=== PATIENT | male | born 1945 | race Caucasian/White ===

== ENCOUNTER 2021-11-18 18:54 | Inpatient (IN) ==
[2021-11-18] MEDS ORDERED: Melatonin 3 MG TABLET PO PRN (23:38)
[2021-11-18] MEDS ORDERED: Naloxone 0.4 MG/ML INJ IVP PRN (23:38)
[2021-11-18] MEDS ORDERED: D5% in Water 1,000 ML IVC PRN (23:39)
[2021-11-18] MEDS ORDERED: *HR* Dextrose 50 % in Water (Syg) 50 ML SYRINGE IVP PRN (23:39)
[2021-11-18] MEDS ORDERED: Dextrose Gel 15 GM/37.5 ML TUBE PO PRN ×2 (23:39)
[2021-11-19] MEDS: Insulin LISPRO 300 UNITS/3 ML VIAL SUBQ SCH ×5 (01:23→23:17)
[2021-11-19] MEDS: Cefepime HCl 1,000 MG in Water for inj. (sterile) 10 ML IVP SCH ×2 (01:23→08:30)
[2021-11-19] MEDS ORDERED: Ringers Solution, Lactated 1,000 ML IVC SCH (05:30)
[2021-11-19] MEDS ORDERED: Cefepime HCl 1,000 MG in Water for inj. (sterile) 10 ML IVP SCH (06:00)
[2021-11-19] MEDS ORDERED: *HR* Heparin 5,000 UNIT/ML VIAL IVP ONE (06:27)
[2021-11-19] MEDS ORDERED: *HR* Heparin 5,000 UNIT/ML VIAL IVP PRN ×2 (06:27)
[2021-11-19] MEDS ORDERED: Heparin 25,000UNIT/250ML 1/2NS 25,000 UNIT/250 ML IV.SOLN IVC SCH (06:30)
[2021-11-19] MEDS ORDERED: DilTIAZem 50 MG in 0.9 % Sodium Chloride 40 ML IVC SCH (06:30)
[2021-11-19 07:05] LABS: Basophils % 0.4 %; Eosinophils # 0.1 K/mcL (0.0-0.6); Eosinophils % 1.2 %; Hematocrit 31.4 % (37.5-50.1); Hemoglobin 10.8 g/dL (12.9-16.9); Immature Granulocytes % 1.8 % (0-4); Lymphocytes # 0.4 K/mcL (0.6-4.6); Lymphocytes % 7.4 %; Mean Corpuscular HGB Conc 34.4 g/dL (31.6-35.5); Mean Corpuscular Hemoglobin 34.2 pg (28.0-33.3); Mean Corpuscular Volume 99.4 fL (83.0-100.0); Mean Platelet Volume 10.8 fL (9.4-12.4); Monocytes # 0.4 K/mcL (0.0-1.3); Platelet Count 214 K/mcL (140-400); Red Blood Count 3.16 M/mcL (4.19-5.50); Red Cell Distribution Width 14.6 % (11.5-14.5); Segmented Neutrophils % 81.2 %; White Blood Count 4.9 K/mcL (4.3-11.1)
[2021-11-19 07:17] LABS: INR 1.1; Prothrombin Time 12.4 Seconds (9.4-12.1)
[2021-11-19 07:25] LABS: Albumin 2.9 g/dL (3.5-5.7); Albumin/Globulin Ratio 1.3 (1.1-2.2); Bilirubin,Direct 0.3 mg/dL (0.0-0.2); Bilirubin,Indirect 0.6 mg/dL (0.0-1.0); Bilirubin,Total 0.9 mg/dL (0.3-1.0); Globulin 2.2 g/dL (2.4-3.5); Total Protein 5.1 g/dL (6.4-8.9)
[2021-11-19 07:26] LABS: BUN/Creatinine Ratio 16 (6-26); Blood Urea Nitrogen 14 mg/dL (8-23); Calcium 7.9 mg/dL (8.6-10.3); Carbon Dioxide 23 mEq/L (23-29); Chloride 107 mEq/L (98-107); Glucose 96 mg/dL (70-105); Magnesium 1.4 mg/dL (1.6-2.6); Osmolality,Calculated 286 (280-300); Phosphorous 1.2 mg/dL (2.7-4.5); Potassium 3.3 mEq/L (3.5-5.1); Sodium 138 mEq/L (136-145); eGFR For African Americans > 60 (> 60); eGFR For Non-African Americans > 60 (> 60)
[2021-11-19] MEDS: DilTIAZem CD (24hr) 180 MG CAP.ER.24H PO SCH (08:29)
[2021-11-19] MEDS ORDERED: Potassium Phosphate 44 MEQ in 0.9 % Sodium Chloride 250 ML IVPB ONE (08:33)
[2021-11-19] MEDS ORDERED: Magnesium Oxide 400 MG TABLET PO ONE (08:34)
[2021-11-19 09:27] LABS: Estimated Average Glucose 240 mg/dl
[2021-11-19 10:49] LABS: C-Reactive Protein 39 mg/L (Less than 10)
[2021-11-19] MEDS ORDERED: *HR* Metoprolol 5 MG/5 ML VIAL IVP PRN (11:20)
[2021-11-19] MEDS: Cefepime HCl 2,000 MG in 0.9 % Sodium Chloride Mini Bag 100 ML IVPB SCH (17:16)
[2021-11-19] MEDS: Heparin 25,000UNIT/250ML 1/2NS 25,000 UNIT/250 ML IV.SOLN IVC SCH (17:18)
[2021-11-20] MEDS: Cefepime HCl 2,000 MG in 0.9 % Sodium Chloride Mini Bag 100 ML IVPB SCH ×4 (00:45→23:35)
[2021-11-20 04:43] LABS: Basophils % 0.2 %; Eosinophils # 0.1 K/mcL (0.0-0.6); Eosinophils % 1.6 %; Hematocrit 26.9 % (37.5-50.1); Hemoglobin 9.3 g/dL (12.9-16.9); Immature Granulocytes % 1.1 % (0-4); Lymphocytes # 0.3 K/mcL (0.6-4.6); Lymphocytes % 7.7 %; Mean Corpuscular HGB Conc 34.6 g/dL (31.6-35.5); Mean Corpuscular Hemoglobin 34.4 pg (28.0-33.3); Mean Corpuscular Volume 99.6 fL (83.0-100.0); Mean Platelet Volume 10.8 fL (9.4-12.4); Monocytes # 0.4 K/mcL (0.0-1.3); Monocytes % 8.1 %; Neutrophils # 3.6 K/mcL (1.6-8.9); Nucleated Red Blood Cells 0.9 /100 WBC (0); Platelet Count 159 K/mcL (140-400); Red Cell Distribution Width 14.9 % (11.5-14.5); Segmented Neutrophils % 81.3 %; White Blood Count 4.4 K/mcL (4.3-11.1)
[2021-11-20 05:09] LABS: BUN/Creatinine Ratio 15 (6-26); Blood Urea Nitrogen 13 mg/dL (8-23); Calcium 7.5 mg/dL (8.6-10.3); Carbon Dioxide 23 mEq/L (23-29); Chloride 106 mEq/L (98-107); Glucose 163 mg/dL (70-105); Osmolality,Calculated 288 (280-300); Potassium 3.2 mEq/L (3.5-5.1); Sodium 137 mEq/L (136-145); eGFR For African Americans > 60 (> 60); eGFR For Non-African Americans > 60 (> 60)
[2021-11-20] MEDS: Insulin LISPRO 300 UNITS/3 ML VIAL SUBQ SCH ×3 (07:05→21:50)
[2021-11-20] MEDS ORDERED: Metoprolol XL (24 HR) Succ 25 MG TAB.ER.24H PO SCH (09:00)
[2021-11-20] MEDS: DilTIAZem CD (24hr) 180 MG CAP.ER.24H PO SCH (09:35)
[2021-11-20] MEDS ORDERED: Isovue-370 500 ML BOTTLE IVP ONE (15:36)
[2021-11-20] MEDS ORDERED: SIMVASTATIN 10 MG PO SCH (18:00)
[2021-11-20] MEDS: carvediloL 6.25 MG TABLET PO SCH (18:28)
[2021-11-20] MEDS: Insulin DETEMIR 100 UNIT/ML X5UNITS SUBQ SCH (21:55)
[2021-11-20] MEDS: Latanoprost 2.5 ML BOTTLE BOTH EYES SCH (21:55)
[2021-11-20] MEDS: Dorzolamide/Timolol OPTH 10 ML BOTTLE BOTH EYES SCH (21:56)
[2021-11-20] MEDS: gemfibroziL 600 MG TABLET PO SCH (23:36)
[2021-11-21] MEDS ORDERED: Acetaminophen 325 MG TABLET PO PRN (00:11)
[2021-11-21] MEDS ORDERED: *HR* OxyCODONE Immed Rel 5 MG TABLET PO PRN (00:11)
[2021-11-21] MEDS: *HR* OxyCODONE Immed Rel 5 MG TABLET PO PRN (00:27)
[2021-11-21] MEDS: Heparin 25,000UNIT/250ML 1/2NS 25,000 UNIT/250 ML IV.SOLN IVC SCH (01:19)
[2021-11-21 05:29] LABS: Basophils % 0.2 %; Eosinophils # 0.1 K/mcL (0.0-0.6); Eosinophils % 1.5 %; Hematocrit 27.8 % (37.5-50.1); Hemoglobin 9.1 g/dL (12.9-16.9); Immature Granulocytes % 1.1 % (0-4); Lymphocytes # 0.3 K/mcL (0.6-4.6); Mean Corpuscular HGB Conc 32.7 g/dL (31.6-35.5); Mean Corpuscular Hemoglobin 33.5 pg (28.0-33.3); Mean Corpuscular Volume 102.2 fL (83.0-100.0); Mean Platelet Volume 10.9 fL (9.4-12.4); Monocytes # 0.4 K/mcL (0.0-1.3); Monocytes % 8.5 %; Neutrophils # 3.8 K/mcL (1.6-8.9); Nucleated Red Blood Cells 0.7 /100 WBC (0); Platelet Count 150 K/mcL (140-400); Red Blood Count 2.72 M/mcL (4.19-5.50); Red Cell Distribution Width 15.2 % (11.5-14.5); Segmented Neutrophils % 81.7 %; White Blood Count 4.6 K/mcL (4.3-11.1)
[2021-11-21 05:35] LABS: BUN/Creatinine Ratio 12 (6-26); Blood Urea Nitrogen 11 mg/dL (8-23); Calcium 7.3 mg/dL (8.6-10.3); Carbon Dioxide 25 mEq/L (23-29); Chloride 108 mEq/L (98-107); Glucose 220 mg/dL (70-105); Magnesium 1.5 mg/dL (1.6-2.6); Osmolality,Calculated 294 (280-300); Phosphorous 1.8 mg/dL (2.7-4.5); Potassium 3.2 mEq/L (3.5-5.1); Sodium 139 mEq/L (136-145); eGFR For African Americans > 60 (> 60); eGFR For Non-African Americans > 60 (> 60)
[2021-11-21] MEDS: Insulin LISPRO 300 UNITS/3 ML VIAL SUBQ SCH ×4 (08:28→21:57)
[2021-11-21] MEDS: Cefepime HCl 2,000 MG in 0.9 % Sodium Chloride Mini Bag 100 ML IVPB SCH ×2 (08:28→17:46)
[2021-11-21] MEDS: DilTIAZem CD (24hr) 180 MG CAP.ER.24H PO SCH (08:29)
[2021-11-21] MEDS: gemfibroziL 600 MG TABLET PO SCH ×2 (08:29→21:50)
[2021-11-21] MEDS: carvediloL 6.25 MG TABLET PO SCH ×2 (08:29→17:49)
[2021-11-21] MEDS: Dorzolamide/Timolol OPTH 10 ML BOTTLE BOTH EYES SCH ×2 (08:30→21:52)
[2021-11-21] MEDS ORDERED: Aspirin Enteric Coated 81 MG Tablet PO SCH (09:00)
[2021-11-21] MEDS ORDERED: *HR* Midazolam HCl 2 MG/2 ML VIAL ONE (12:34)
[2021-11-21] MEDS ORDERED: *HR* FentaNYL (PF) 100 MCG/2 ML VIAL ONE (12:34)
[2021-11-21] MEDS ORDERED: *HR* Heparin 10,000 UNIT/10 ML VIAL ONE (12:35)
[2021-11-21] MEDS ORDERED: Heparin 1,000 UNITS/500 mL 500 ML ONE (12:35)
[2021-11-21] MEDS ORDERED: 0.9 % Sodium Chloride 2,000 ML ONE (12:35)
[2021-11-21] MEDS ORDERED: Sennosides 8.6 MG TABLET PO SCH (21:00)
[2021-11-21] MEDS: Insulin DETEMIR 100 UNIT/ML X5UNITS SUBQ SCH (21:51)
[2021-11-21] MEDS: Latanoprost 2.5 ML BOTTLE BOTH EYES SCH (21:52)
[2021-11-22] MEDS: Cefepime HCl 2,000 MG in 0.9 % Sodium Chloride Mini Bag 100 ML IVPB SCH (00:07)
[2021-11-22] MEDS: *HR* OxyCODONE Immed Rel 5 MG TABLET PO PRN (01:27)
[2021-11-22 04:59] LABS: Basophils % 0.2 %; Eosinophils # 0.1 K/mcL (0.0-0.6); Eosinophils % 1.7 %; Hematocrit 27.6 % (37.5-50.1); Hemoglobin 8.9 g/dL (12.9-16.9); Lymphocytes # 0.4 K/mcL (0.6-4.6); Lymphocytes % 7.9 %; Mean Corpuscular HGB Conc 32.2 g/dL (31.6-35.5); Mean Corpuscular Hemoglobin 33.2 pg (28.0-33.3); Mean Platelet Volume 10.7 fL (9.4-12.4); Monocytes # 0.4 K/mcL (0.0-1.3); Monocytes % 8.3 %; Neutrophils # 4.2 K/mcL (1.6-8.9); Nucleated Red Blood Cells 0.4 /100 WBC (0); Platelet Count 144 K/mcL (140-400); Red Blood Count 2.68 M/mcL (4.19-5.50); Segmented Neutrophils % 80.9 %; White Blood Count 5.2 K/mcL (4.3-11.1)
[2021-11-22 05:37] LABS: BUN/Creatinine Ratio 13 (6-26); Blood Urea Nitrogen 11 mg/dL (8-23); Calcium 7.4 mg/dL (8.6-10.3); Carbon Dioxide 24 mEq/L (23-29); Chloride 110 mEq/L (98-107); Glucose 53 mg/dL (70-105); Magnesium 1.5 mg/dL (1.6-2.6); Osmolality,Calculated 283 (280-300); Potassium 3.3 mEq/L (3.5-5.1); Sodium 138 mEq/L (136-145); eGFR For African Americans > 60 (> 60); eGFR For Non-African Americans > 60 (> 60)
[2021-11-22] MEDS ORDERED: Potassium Chloride Elixir 20 MEQ/15 ML UDC PO ONE ×2 (07:38→15:53)
[2021-11-22] MEDS ORDERED: Apixaban 5 MG TABLET PO SCH ×2 (07:40→21:00)
[2021-11-22] MEDS ORDERED: Ondansetron 4 MG/2 ML VIAL IVP PRN ×2 (10:48→15:53)
[2021-11-22] MEDS ORDERED: Lidocaine 1% 20 ML MDV ONE (10:48)
[2021-11-22] MEDS ORDERED: Bupivacaine/EPI 1:200k 0.25% 50 ML VIAL ONE (10:48)
[2021-11-22] MEDS ORDERED: *HR* HYDROmorphone PF 0.5 MG/0.5 ML SYRINGE IVP PRN (10:48)
[2021-11-22] MEDS ORDERED: *HR* FentaNYL (PF) 100 MCG/2 ML VIAL IVP PRN (10:48)
[2021-11-22] MEDS: gemfibroziL 600 MG TABLET PO SCH ×2 (10:56→22:31)
[2021-11-22] MEDS: DilTIAZem CD (24hr) 180 MG CAP.ER.24H PO SCH (10:56)
[2021-11-22] MEDS: carvediloL 6.25 MG TABLET PO SCH ×3 (11:01→16:23)
[2021-11-22] MEDS: Dorzolamide/Timolol OPTH 10 ML BOTTLE BOTH EYES SCH ×2 (11:04→22:32)
[2021-11-22] MEDS: Insulin LISPRO 300 UNITS/3 ML VIAL SUBQ SCH ×2 (11:05→17:34)
[2021-11-22] MEDS ORDERED: *HR* FentaNYL (PF) 100 MCG/2 ML VIAL ONE (12:15)
[2021-11-22] MEDS ORDERED: Ondansetron 4 MG/2 ML VIAL ONE (12:16)
[2021-11-22] MEDS ORDERED: Acetaminophen IV 1,000 MG/100 ML BAG IVPB ONE ×2 (13:00→15:53)
[2021-11-22] MEDS ORDERED: Famotidine 20 MG/2 ML VIAL IVP ONE ×2 (13:00→15:53)
[2021-11-22] MEDS ORDERED: Vancomycin 1,000 MG VIAL ONE (13:16)
[2021-11-22] MEDS ORDERED: Acetaminophen 325 MG TABLET PO PRN (15:53)
[2021-11-22] MEDS ORDERED: Dextrose Gel 15 GM/37.5 ML TUBE PO PRN ×2 (15:53)
[2021-11-22] MEDS ORDERED: Naloxone 0.4 MG/ML INJ IVP PRN (15:53)
[2021-11-22] MEDS ORDERED: D5% in Water 1,000 ML IVC PRN (15:53)
[2021-11-22] MEDS ORDERED: *HR* Dextrose 50 % in Water (Syg) 50 ML SYRINGE IVP PRN (15:53)
[2021-11-22] MEDS ORDERED: Insulin LISPRO 300 UNITS/3 ML VIAL SUBQ SCH (21:00)
[2021-11-22] MEDS ORDERED: Insulin DETEMIR 100 UNIT/ML X5UNITS SUBQ SCH (21:00)
[2021-11-22] MEDS: Apixaban 5 MG TABLET PO SCH (22:31)
[2021-11-22] MEDS: Latanoprost 2.5 ML BOTTLE BOTH EYES SCH (22:33)
[2021-11-23] MEDS: Melatonin 3 MG TABLET PO PRN (00:42)
[2021-11-23 00:56] LABS: Basophils % 0.2 %; Eosinophils # 0.1 K/mcL (0.0-0.6); Eosinophils % 1.4 %; Hematocrit 27.7 % (37.5-50.1); Hemoglobin 8.8 g/dL (12.9-16.9); Lymphocytes # 0.3 K/mcL (0.6-4.6); Lymphocytes % 5.4 %; Mean Corpuscular HGB Conc 31.8 g/dL (31.6-35.5); Mean Corpuscular Hemoglobin 33.3 pg (28.0-33.3); Mean Corpuscular Volume 104.9 fL (83.0-100.0); Mean Platelet Volume 10.7 fL (9.4-12.4); Monocytes # 0.4 K/mcL (0.0-1.3); Monocytes % 8.2 %; Neutrophils # 4.2 K/mcL (1.6-8.9); Nucleated Red Blood Cells 0.4 /100 WBC (0); Platelet Count 159 K/mcL (140-400); Red Blood Count 2.64 M/mcL (4.19-5.50); Segmented Neutrophils % 83.8 %
[2021-11-23 01:16] LABS: BUN/Creatinine Ratio 12 (6-26); Blood Urea Nitrogen 10 mg/dL (8-23); Calcium 7.4 mg/dL (8.6-10.3); Carbon Dioxide 24 mEq/L (23-29); Chloride 108 mEq/L (98-107); Glucose 127 mg/dL (70-105); Magnesium 1.9 mg/dL (1.6-2.6); Osmolality,Calculated 285 (280-300); Phosphorous 2.3 mg/dL (2.7-4.5); Sodium 137 mEq/L (136-145); eGFR For African Americans > 60 (> 60); eGFR For Non-African Americans > 60 (> 60)
[2021-11-23] MEDS ORDERED: Ketorolac 30 MG/ML VIAL IVP ONE (04:38)
[2021-11-23] MEDS: DilTIAZem CD (24hr) 180 MG CAP.ER.24H PO SCH (07:56)
[2021-11-23] MEDS: gemfibroziL 600 MG TABLET PO SCH ×2 (07:56→19:55)
[2021-11-23] MEDS: carvediloL 6.25 MG TABLET PO SCH ×2 (07:56→18:04)
[2021-11-23] MEDS: Apixaban 5 MG TABLET PO SCH ×2 (07:57→19:56)
[2021-11-23] MEDS: Insulin LISPRO 300 UNITS/3 ML VIAL SUBQ SCH ×3 (07:58→18:04)
[2021-11-23] MEDS: Dorzolamide/Timolol OPTH 10 ML BOTTLE BOTH EYES SCH ×2 (07:58→19:59)
[2021-11-23] MEDS: *HR* OxyCODONE Immed Rel 5 MG TABLET PO PRN (19:56)
[2021-11-23] MEDS: Latanoprost 2.5 ML BOTTLE BOTH EYES SCH (20:01)
[2021-11-24] MEDS: *HR* OxyCODONE Immed Rel 5 MG TABLET PO PRN ×3 (03:47→21:35)
[2021-11-24] MEDS: Nystatin POWDER 30 GM BOTTLE TP SCH ×4 (03:47→20:26)
[2021-11-24] MEDS: Insulin LISPRO 300 UNITS/3 ML VIAL SUBQ SCH ×4 (07:39→17:20)
[2021-11-24 07:42] LABS: BUN/Creatinine Ratio 11 (6-26); Blood Urea Nitrogen 9 mg/dL (8-23); Calcium 7.4 mg/dL (8.6-10.3); Carbon Dioxide 25 mEq/L (23-29); Chloride 107 mEq/L (98-107); Glucose 242 mg/dL (70-105); Magnesium 1.7 mg/dL (1.6-2.6); Osmolality,Calculated 289 (280-300); Phosphorous 2.5 mg/dL (2.7-4.5); Potassium 3.9 mEq/L (3.5-5.1); Sodium 136 mEq/L (136-145); eGFR For African Americans > 60 (> 60); eGFR For Non-African Americans > 60 (> 60)
[2021-11-24] MEDS: carvediloL 6.25 MG TABLET PO SCH ×2 (07:53→17:19)
[2021-11-24] MEDS: Apixaban 5 MG TABLET PO SCH ×2 (07:53→20:25)
[2021-11-24] MEDS: DilTIAZem CD (24hr) 180 MG CAP.ER.24H PO SCH (07:54)
[2021-11-24] MEDS: gemfibroziL 600 MG TABLET PO SCH ×2 (07:54→20:25)
[2021-11-24] MEDS: Dorzolamide/Timolol OPTH 10 ML BOTTLE BOTH EYES SCH ×2 (07:55→20:40)
[2021-11-24] MEDS: Melatonin 3 MG TABLET PO PRN (20:25)
[2021-11-24] MEDS: Latanoprost 2.5 ML BOTTLE BOTH EYES SCH (20:40)
[2021-11-25 03:27] LABS: Basophils % 0.3 %; Eosinophils # 0.1 K/mcL (0.0-0.6); Eosinophils % 1.8 %; Hematocrit 26.8 % (37.5-50.1); Hemoglobin 8.6 g/dL (12.9-16.9); Immature Granulocytes % 0.6 % (0-4); Lymphocytes # 0.4 K/mcL (0.6-4.6); Lymphocytes % 11.3 %; Mean Corpuscular HGB Conc 32.1 g/dL (31.6-35.5); Mean Corpuscular Hemoglobin 33.9 pg (28.0-33.3); Mean Corpuscular Volume 105.5 fL (83.0-100.0); Mean Platelet Volume 10.8 fL (9.4-12.4); Monocytes # 0.5 K/mcL (0.0-1.3); Monocytes % 14.9 %; Neutrophils # 2.4 K/mcL (1.6-8.9); Nucleated Red Blood Cells 0.6 /100 WBC (0); Platelet Count 192 K/mcL (140-400); Red Blood Count 2.54 M/mcL (4.19-5.50); Red Cell Distribution Width 16.1 % (11.5-14.5); Segmented Neutrophils % 71.1 %; White Blood Count 3.4 K/mcL (4.3-11.1)
[2021-11-25 03:50] LABS: BUN/Creatinine Ratio 10 (6-26); Blood Urea Nitrogen 10 mg/dL (8-23); Calcium 7.7 mg/dL (8.6-10.3); Carbon Dioxide 28 mEq/L (23-29); Chloride 104 mEq/L (98-107); Glucose 219 mg/dL (70-105); Osmolality,Calculated 290 (280-300); Potassium 3.8 mEq/L (3.5-5.1); Sodium 137 mEq/L (136-145); eGFR For African Americans > 60 (> 60); eGFR For Non-African Americans > 60 (> 60)
[2021-11-25 03:53] LABS: Anisocytosis 1+ (Not Present); Platelet Estimate Normal (Normal); Polychromasia 1+ (Not Present); Reactive Lymphocytes Present (Not Present)
[2021-11-25] MEDS: *HR* OxyCODONE Immed Rel 5 MG TABLET PO PRN ×3 (08:19→23:40)
[2021-11-25] MEDS: gemfibroziL 600 MG TABLET PO SCH ×2 (08:20→20:43)
[2021-11-25] MEDS: Apixaban 5 MG TABLET PO SCH ×2 (08:21→20:44)
[2021-11-25] MEDS: carvediloL 6.25 MG TABLET PO SCH ×2 (08:21→17:53)
[2021-11-25] MEDS: DilTIAZem CD (24hr) 180 MG CAP.ER.24H PO SCH (08:21)
[2021-11-25] MEDS: Nystatin POWDER 30 GM BOTTLE TP SCH ×3 (08:22→20:45)
[2021-11-25] MEDS: Dorzolamide/Timolol OPTH 10 ML BOTTLE BOTH EYES SCH ×2 (08:24→20:44)
[2021-11-25] MEDS: Insulin LISPRO 300 UNITS/3 ML VIAL SUBQ SCH ×3 (08:31→16:39)
[2021-11-25] MEDS: Latanoprost 2.5 ML BOTTLE BOTH EYES SCH (20:44)
[2021-11-26] MEDS: *HR* OxyCODONE Immed Rel 5 MG TABLET PO PRN ×3 (03:40→17:20)
[2021-11-26 08:23] LABS: BUN/Creatinine Ratio 11 (6-26); Blood Urea Nitrogen 9 mg/dL (8-23); Calcium 7.8 mg/dL (8.6-10.3); Carbon Dioxide 28 mEq/L (23-29); Chloride 102 mEq/L (98-107); Glucose 274 mg/dL (70-105); Osmolality,Calculated 288 (280-300); Potassium 3.7 mEq/L (3.5-5.1); Sodium 135 mEq/L (136-145); eGFR For African Americans > 60 (> 60); eGFR For Non-African Americans > 60 (> 60)
[2021-11-26 08:25] LABS: Magnesium 1.6 mg/dL (1.6-2.6); Phosphorous 1.8 mg/dL (2.7-4.5)
[2021-11-26] MEDS: Insulin LISPRO 300 UNITS/3 ML VIAL SUBQ SCH ×3 (08:28→17:21)
[2021-11-26] MEDS: DilTIAZem CD (24hr) 180 MG CAP.ER.24H PO SCH (08:29)
[2021-11-26] MEDS: gemfibroziL 600 MG TABLET PO SCH ×2 (08:29→20:44)
[2021-11-26] MEDS: carvediloL 6.25 MG TABLET PO SCH ×2 (08:29→17:20)
[2021-11-26] MEDS: Apixaban 5 MG TABLET PO SCH ×2 (08:29→20:44)
[2021-11-26] MEDS: Nystatin POWDER 30 GM BOTTLE TP SCH ×3 (08:30→20:44)
[2021-11-26] MEDS: Dorzolamide/Timolol OPTH 10 ML BOTTLE BOTH EYES SCH ×2 (08:30→20:47)
[2021-11-26] MEDS: Magnesium Oxide 400 MG TABLET PO SCH (11:51)
[2021-11-26] MEDS: Latanoprost 2.5 ML BOTTLE BOTH EYES SCH (20:47)
[2021-11-27] MEDS: *HR* OxyCODONE Immed Rel 5 MG TABLET PO PRN ×4 (02:52→23:28)
[2021-11-27 05:57] LABS: Basophils % 0.2 %; Eosinophils # 0.1 K/mcL (0.0-0.6); Eosinophils % 1.5 %; Hematocrit 25.5 % (37.5-50.1); Hemoglobin 8.2 g/dL (12.9-16.9); Immature Granulocytes % 1.2 % (0-4); Lymphocytes # 0.2 K/mcL (0.6-4.6); Lymphocytes % 4.9 %; Mean Corpuscular HGB Conc 32.2 g/dL (31.6-35.5); Mean Corpuscular Hemoglobin 33.2 pg (28.0-33.3); Mean Corpuscular Volume 103.2 fL (83.0-100.0); Mean Platelet Volume 10.6 fL (9.4-12.4); Monocytes # 0.5 K/mcL (0.0-1.3); Nucleated Red Blood Cells 0.5 /100 WBC (0); Platelet Count 230 K/mcL (140-400); Red Blood Count 2.47 M/mcL (4.19-5.50); Red Cell Distribution Width 15.7 % (11.5-14.5); Segmented Neutrophils % 79.2 %; White Blood Count 4.1 K/mcL (4.3-11.1)
[2021-11-27 06:05] LABS: Neutrophils # 3.3 K/mcL (1.6-8.9)
[2021-11-27 06:15] LABS: BUN/Creatinine Ratio 12 (6-26); Blood Urea Nitrogen 10 mg/dL (8-23); Calcium 7.5 mg/dL (8.6-10.3); Carbon Dioxide 29 mEq/L (23-29); Chloride 102 mEq/L (98-107); Glucose 277 mg/dL (70-105); Osmolality,Calculated 291 (280-300); Potassium 3.5 mEq/L (3.5-5.1); Sodium 136 mEq/L (136-145); eGFR For African Americans > 60 (> 60); eGFR For Non-African Americans > 60 (> 60)
[2021-11-27] MEDS: Nystatin POWDER 30 GM BOTTLE TP SCH ×3 (07:45→20:35)
[2021-11-27] MEDS: Apixaban 5 MG TABLET PO SCH ×2 (07:46→20:34)
[2021-11-27] MEDS: Insulin LISPRO 300 UNITS/3 ML VIAL SUBQ SCH ×3 (07:46→16:57)
[2021-11-27] MEDS: gemfibroziL 600 MG TABLET PO SCH ×2 (07:46→20:34)
[2021-11-27] MEDS: DilTIAZem CD (24hr) 180 MG CAP.ER.24H PO SCH (07:47)
[2021-11-27] MEDS: Dorzolamide/Timolol OPTH 10 ML BOTTLE BOTH EYES SCH ×2 (07:47→20:35)
[2021-11-27] MEDS: carvediloL 6.25 MG TABLET PO SCH ×2 (07:47→16:57)
[2021-11-27] MEDS: Magnesium Oxide 400 MG TABLET PO SCH (07:47)
[2021-11-27] MEDS: Latanoprost 2.5 ML BOTTLE BOTH EYES SCH (20:36)
[2021-11-28] MEDS: *HR* OxyCODONE Immed Rel 5 MG TABLET PO PRN ×2 (04:41→08:59)
[2021-11-28 07:55] LABS: Hematocrit 27.6 % (37.5-50.1); Hemoglobin 9.2 g/dL (12.9-16.9); Mean Corpuscular HGB Conc 33.3 g/dL (31.6-35.5); Mean Corpuscular Hemoglobin 34.5 pg (28.0-33.3); Mean Corpuscular Volume 103.4 fL (83.0-100.0); Mean Platelet Volume 10.5 fL (9.4-12.4); Monocytes # 0.5 K/mcL (0.0-1.3); Platelet Count 273 K/mcL (140-400); Red Blood Count 2.67 M/mcL (4.19-5.50); Red Cell Distribution Width 15.7 % (11.5-14.5); White Blood Count 4.5 K/mcL (4.3-11.1)
[2021-11-28 08:11] LABS: BUN/Creatinine Ratio 11 (6-26); Blood Urea Nitrogen 9 mg/dL (8-23); Carbon Dioxide 27 mEq/L (23-29); Chloride 100 mEq/L (98-107); Glucose 297 mg/dL (70-105); Magnesium 1.6 mg/dL (1.6-2.6); Osmolality,Calculated 288 (280-300); Potassium 3.7 mEq/L (3.5-5.1); Sodium 134 mEq/L (136-145); eGFR For African Americans > 60 (> 60); eGFR For Non-African Americans > 60 (> 60)
[2021-11-28] MEDS: carvediloL 6.25 MG TABLET PO SCH (08:47)
[2021-11-28] MEDS: DilTIAZem CD (24hr) 180 MG CAP.ER.24H PO SCH (08:47)
[2021-11-28] MEDS: gemfibroziL 600 MG TABLET PO SCH (08:47)
[2021-11-28] MEDS: Apixaban 5 MG TABLET PO SCH (08:47)
[2021-11-28] MEDS: Nystatin POWDER 30 GM BOTTLE TP SCH ×2 (08:47→14:34)
[2021-11-28] MEDS: Magnesium Oxide 400 MG TABLET PO SCH (08:47)
[2021-11-28] MEDS: Insulin LISPRO 300 UNITS/3 ML VIAL SUBQ SCH ×2 (08:48→12:08)
[2021-11-28 08:49] LABS: Anisocytosis 2+ (Not Present); Lymphocytes # 0.1 K/mcL (0.6-4.6); Platelet Estimate Normal (Normal)
[2021-11-28] MEDS: Dorzolamide/Timolol OPTH 10 ML BOTTLE BOTH EYES SCH (08:51)
[2021-11-28 12:49] LABS: Adenovirus Not Detected (Not Detect); Bordetella Pertussis Not Detected (Not Detect); Chlamydophila pneumoniae Not Detected (Not Detect); Coronavirus 229E Not Detected (Not Detect); Coronavirus HKU1 Not Detected (Not Detect); Coronavirus NL63 Not Detected (Not Detect); Coronavirus OC43 Not Detected (Not Detect); Human Metapneumovirus Not Detected (Not Detect); Human Rhinovirus/Enterovirus Not Detected (Not Detect); Influenza A Subtype 2009 H1 Not Detected (Not Detect); Influenza B Not Detected (Not Detect); Mycoplasma pneumoniae Not Detected (Not Detect); Parainfluenza Virus 1 Not Detected (Not Detect); Parainfluenza Virus 2 Not Detected (Not Detect); Parainfluenza Virus 3 Not Detected (Not Detect); Parainfluenza Virus 4 Not Detected (Not Detect); Respiratory Syncytial Virus Not Detected (Not Detect); SARS-CoV-2 Not Detected (Not Detect)
[2021-11-28 15:20] VITALS: BP 108/63; PULSE 81; TEMP 98.6; O2SAT 88
[2021-11-28] MEDS ORDERED: Sennosides/Docusate Sodium TABLET PO SCH (21:00)
[2021-11-28] MEDS ORDERED: Insulin DETEMIR 100 UNIT/ML X5UNITS SUBQ SCH (21:00)
[2021-11-29] MEDS ORDERED: polyethylene glycoL 3350 17 GM POWD.PACK PO SCH (09:00)
== END 2021-11-28 16:18 | DRG 854 ==
LOC: 4WAOSI → SUATTDRO 11-19 13:26
PROVIDERS: ADMIT Student in an Organized Health Care Education/Training Program; ATTEND Pharmacist

== ENCOUNTER 2021-11-30 10:28 | Inpatient (IN) ==
[2021-11-30] MEDS ORDERED: *HR* Dextrose 50 % in Water (Syg) 50 ML SYRINGE ONE (13:55)
[2021-11-30] MEDS ORDERED: D5% in Water 1,000 ML IVC PRN (13:56)
[2021-11-30] MEDS ORDERED: Dextrose Gel 15 GM/37.5 ML TUBE PO PRN ×2 (13:56)
[2021-11-30] MEDS ORDERED: Isovue-370 500 ML BOTTLE IVP ONE (13:57)
[2021-11-30] MEDS: *HR* Dextrose 50 % in Water (Syg) 50 ML SYRINGE IVP PRN ×2 (13:59→18:00)
[2021-11-30] MEDS ORDERED: Furosemide 40 MG/4 ML VIAL IVP ONE (14:03)
[2021-11-30] MEDS ORDERED: Ondansetron 4 MG/2 ML VIAL IVP PRN (14:06)
[2021-11-30] MEDS ORDERED: Naloxone 0.4 MG/ML INJ IVP PRN (14:06)
[2021-11-30] MEDS: *HR* Metoprolol 5 MG/5 ML VIAL IVP PRN (14:16)
[2021-11-30] MEDS: DilTIAZem 50 MG in 0.9 % Sodium Chloride 40 ML IVC SCH ×2 (14:22→22:08)
[2021-11-30 14:30] LABS: VBG Base Excess 2 mEq/L; VBG Chloride 101 mEq/L (98-107); VBG Glucose 195 mg/dl (65-95); VBG HCO3 29 mEq/L (21-27); VBG Ionized Calcium 1.06 mmol/L (1.15-1.35); VBG Oxygen Saturation 49 %; VBG PCO2 51 mmHg (41-51); VBG PH 7.36 pH Units (7.32-7.42); VBG PO2 28 mmHg (25-50); VBG Total CO2 30 mEq/L
[2021-11-30 14:35] LABS: INR 1.9; Prothrombin Time 20.9 Seconds (9.4-12.1)
[2021-11-30] MEDS ORDERED: Perflutren Lipid Microsphere 1.3 ML in 0.9 % Sodium Chloride 8.7 ML IVP PRN (14:38)
[2021-11-30] MEDS: carvediloL 6.25 MG TABLET PO SCH (17:04)
[2021-11-30] MEDS: *HR* OxyCODONE Immed Rel 5 MG TABLET PO PRN (18:53)
[2021-11-30] MEDS: Piperacillin/Tazobactam 3.375 GM in 0.9 % Sodium Chloride Mini Bag 100 ML IVPB SCH (19:06)
[2021-11-30] MEDS: D5% in 0.45% NACL 1,000 ML IVC SCH (19:06)
[2021-11-30] MEDS ORDERED: *HR* HYDROcodone/Acet 5/325 mg TABLET PO ONE (23:13)
[2021-11-30] MEDS: Apixaban 5 MG TABLET PO SCH (23:21)
[2021-12-01] MEDS: Piperacillin/Tazobactam 3.375 GM in 0.9 % Sodium Chloride Mini Bag 100 ML IVPB SCH ×3 (01:03→16:06)
[2021-12-01] MEDS: *HR* OxyCODONE Immed Rel 5 MG TABLET PO PRN ×3 (04:34→16:07)
[2021-12-01] MEDS ORDERED: Morphine Sulfate 2 MG/ML SYRINGE IVP ONE (06:40)
[2021-12-01] MEDS: Apixaban 5 MG TABLET PO SCH ×2 (08:41→19:43)
[2021-12-01] MEDS: gemfibroziL 600 MG TABLET PO SCH ×2 (08:41→19:43)
[2021-12-01] MEDS: Dorzolamide/Timolol OPTH 10 ML BOTTLE BOTH EYES SCH ×2 (08:42→19:44)
[2021-12-01] MEDS: D5% in 0.45% NACL 1,000 ML IVC SCH (08:42)
[2021-12-01] MEDS: carvediloL 6.25 MG TABLET PO SCH ×2 (08:42→16:05)
[2021-12-01] MEDS ORDERED: DilTIAZem CD (24hr) 180 MG CAP.ER.24H PO SCH (09:00)
[2021-12-01 11:44] LABS: Hematocrit 24.2 % (37.5-50.1); Mean Corpuscular Hemoglobin 32.9 pg (28.0-33.3); Mean Corpuscular Volume 106.1 fL (83.0-100.0); Mean Platelet Volume 10.8 fL (9.4-12.4); Nucleated Red Blood Cells 0.3 /100 WBC (0); Platelet Count 226 K/mcL (140-400); Red Blood Count 2.28 M/mcL (4.19-5.50)
[2021-12-01 11:48] LABS: Hemoglobin 7.5 g/dL (12.9-16.9); White Blood Count 6.9 K/mcL (4.3-11.1)
[2021-12-01 12:02] LABS: BUN/Creatinine Ratio 15 (6-26); Blood Urea Nitrogen 15 mg/dL (8-23); Calcium 7.3 mg/dL (8.6-10.3); Carbon Dioxide 29 mEq/L (23-29); Chloride 102 mEq/L (98-107); Glucose 179 mg/dL (70-105); Magnesium 1.6 mg/dL (1.6-2.6); Osmolality,Calculated 291 (280-300); Potassium 3.8 mEq/L (3.5-5.1); Sodium 138 mEq/L (136-145); eGFR For African Americans > 60 (> 60); eGFR For Non-African Americans > 60 (> 60)
[2021-12-01 12:07] LABS: Lymphocytes # 0.4 K/mcL (0.6-4.6); Monocytes # 0.4 K/mcL (0.0-1.3); Neutrophils # 6.1 K/mcL (1.6-8.9); Platelet Estimate Normal (Normal); Poikilocytosis 1+ (Not Present); Polychromasia 1+ (Not Present)
[2021-12-01] MEDS: DilTIAZem 50 MG in 0.9 % Sodium Chloride 40 ML IVC SCH (12:22)
[2021-12-01] MEDS: Gabapentin 300 MG CAPSULE PO SCH ×3 (12:49→19:43)
[2021-12-01 17:18] LABS: Hematocrit 23.5 % (37.5-50.1); Hemoglobin 7.4 g/dL (12.9-16.9)
[2021-12-01] MEDS: Latanoprost 2.5 ML BOTTLE BOTH EYES SCH (19:44)
[2021-12-02] MEDS: Piperacillin/Tazobactam 3.375 GM in 0.9 % Sodium Chloride Mini Bag 100 ML IVPB SCH ×3 (04:39→18:19)
[2021-12-02 05:04] LABS: Basophils % 0.3 %; Eosinophils # 0.1 K/mcL (0.0-0.6); Eosinophils % 0.8 %; Hematocrit 24.6 % (37.5-50.1); Hemoglobin 7.7 g/dL (12.9-16.9); Immature Granulocytes % 1.2 % (0-4); Lymphocytes # 0.3 K/mcL (0.6-4.6); Lymphocytes % 3.8 %; Mean Corpuscular HGB Conc 31.3 g/dL (31.6-35.5); Mean Corpuscular Hemoglobin 33.2 pg (28.0-33.3); Mean Platelet Volume 10.7 fL (9.4-12.4); Monocytes # 0.5 K/mcL (0.0-1.3); Monocytes % 6.2 %; Neutrophils # 6.7 K/mcL (1.6-8.9); Platelet Count 281 K/mcL (140-400); Red Blood Count 2.32 M/mcL (4.19-5.50); Red Cell Distribution Width 15.9 % (11.5-14.5); Segmented Neutrophils % 87.7 %; White Blood Count 7.6 K/mcL (4.3-11.1)
[2021-12-02 05:26] LABS: BUN/Creatinine Ratio 16 (6-26); Blood Urea Nitrogen 14 mg/dL (8-23); Calcium 7.4 mg/dL (8.6-10.3); Carbon Dioxide 30 mEq/L (23-29); Chloride 103 mEq/L (98-107); Glucose 162 mg/dL (70-105); Iron 34 mcg/dL (65-175); Osmolality,Calculated 288 (280-300); Potassium 3.5 mEq/L (3.5-5.1); Sodium 137 mEq/L (136-145); eGFR For African Americans > 60 (> 60); eGFR For Non-African Americans > 60 (> 60)
[2021-12-02 05:36] LABS: % Iron Saturation 25 % (20-55); Transferrin 97 mg/dL (203-362)
[2021-12-02 05:43] LABS: Ferritin 401 ng/mL (20-250)
[2021-12-02 05:48] LABS: Folate 6.9 ng/mL (3.0-16.0)
[2021-12-02] MEDS: *HR* OxyCODONE Immed Rel 5 MG TABLET PO PRN ×2 (06:12→20:22)
[2021-12-02] MEDS ORDERED: Iron Sucrose Complex 400 MG in 0.9 % Sodium Chloride 250 ML IVPB ONE (07:33)
[2021-12-02] MEDS: Apixaban 5 MG TABLET PO SCH ×2 (07:36→20:22)
[2021-12-02] MEDS: gemfibroziL 600 MG TABLET PO SCH ×2 (07:37→20:22)
[2021-12-02] MEDS: carvediloL 6.25 MG TABLET PO SCH ×2 (07:37→16:04)
[2021-12-02] MEDS: Dorzolamide/Timolol OPTH 10 ML BOTTLE BOTH EYES SCH ×2 (07:37→20:23)
[2021-12-02] MEDS: Gabapentin 300 MG CAPSULE PO SCH ×3 (07:37→20:22)
[2021-12-02 16:06] LABS: Procalcitonin 4.84 ng/mL (0.00-0.15)
[2021-12-02] MEDS: Latanoprost 2.5 ML BOTTLE BOTH EYES SCH (20:24)
[2021-12-03] MEDS: Piperacillin/Tazobactam 3.375 GM in 0.9 % Sodium Chloride Mini Bag 100 ML IVPB SCH ×3 (01:52→17:47)
[2021-12-03] MEDS ORDERED: *HR* Dextrose 50 % in Water (Syg) 50 ML SYRINGE IVP PRN (02:10)
[2021-12-03] MEDS ORDERED: D5% in Water 1,000 ML IVC PRN (02:10)
[2021-12-03] MEDS ORDERED: Dextrose Gel 15 GM/37.5 ML TUBE PO PRN ×2 (02:10)
[2021-12-03 03:51] LABS: Basophils % 0.3 %; Eosinophils % 0.5 %; Hematocrit 24.4 % (37.5-50.1); Hemoglobin 7.7 g/dL (12.9-16.9); Immature Granulocytes % 1.8 % (0-4); Lymphocytes # 0.3 K/mcL (0.6-4.6); Lymphocytes % 4.2 %; Mean Corpuscular HGB Conc 31.6 g/dL (31.6-35.5); Mean Corpuscular Hemoglobin 33.5 pg (28.0-33.3); Mean Corpuscular Volume 106.1 fL (83.0-100.0); Mean Platelet Volume 10.7 fL (9.4-12.4); Monocytes # 0.4 K/mcL (0.0-1.3); Monocytes % 6.5 %; Neutrophils # 5.8 K/mcL (1.6-8.9); Platelet Count 305 K/mcL (140-400); Segmented Neutrophils % 86.7 %; White Blood Count 6.6 K/mcL (4.3-11.1)
[2021-12-03] MEDS: *HR* OxyCODONE Immed Rel 5 MG TABLET PO PRN ×2 (04:19→14:05)
[2021-12-03 04:20] LABS: BUN/Creatinine Ratio 11 (6-26); Blood Urea Nitrogen 11 mg/dL (8-23); Calcium 7.4 mg/dL (8.6-10.3); Carbon Dioxide 29 mEq/L (23-29); Chloride 103 mEq/L (98-107); Glucose 208 mg/dL (70-105); Osmolality,Calculated 291 (280-300); Potassium 3.7 mEq/L (3.5-5.1); Sodium 138 mEq/L (136-145); eGFR For African Americans > 60 (> 60); eGFR For Non-African Americans > 60 (> 60)
[2021-12-03] MEDS: Insulin LISPRO 300 UNITS/3 ML VIAL SUBQ SCH ×3 (11:15→17:51)
[2021-12-03] MEDS: gemfibroziL 600 MG TABLET PO SCH (11:17)
[2021-12-03] MEDS: carvediloL 6.25 MG TABLET PO SCH ×2 (11:17→17:39)
[2021-12-03] MEDS: Gabapentin 300 MG CAPSULE PO SCH ×3 (11:17→20:47)
[2021-12-03] MEDS: Apixaban 5 MG TABLET PO SCH ×2 (11:17→20:47)
[2021-12-03] MEDS: Dorzolamide/Timolol OPTH 10 ML BOTTLE BOTH EYES SCH ×2 (11:19→20:48)
[2021-12-03] MEDS ORDERED: Morphine Sulfate 2 MG/ML SYRINGE IVP ONE (17:40)
[2021-12-03] MEDS: Latanoprost 2.5 ML BOTTLE BOTH EYES SCH (20:48)
[2021-12-04] MEDS: *HR* OxyCODONE Immed Rel 5 MG TABLET PO PRN ×3 (02:12→19:58)
[2021-12-04] MEDS: Piperacillin/Tazobactam 3.375 GM in 0.9 % Sodium Chloride Mini Bag 100 ML IVPB SCH ×3 (02:12→17:04)
[2021-12-04] MEDS ORDERED: Morphine Sulfate 2 MG/ML SYRINGE IVP ONE (05:21)
[2021-12-04 06:34] LABS: Basophils % 0.5 %; Eosinophils % 0.6 %; Hematocrit 26.4 % (37.5-50.1); Hemoglobin 8.2 g/dL (12.9-16.9); Lymphocytes # 0.3 K/mcL (0.6-4.6); Lymphocytes % 4.3 %; Mean Corpuscular HGB Conc 31.1 g/dL (31.6-35.5); Mean Corpuscular Hemoglobin 33.3 pg (28.0-33.3); Mean Corpuscular Volume 107.3 fL (83.0-100.0); Mean Platelet Volume 10.2 fL (9.4-12.4); Monocytes # 0.6 K/mcL (0.0-1.3); Monocytes % 9.1 %; Neutrophils # 5.5 K/mcL (1.6-8.9); Platelet Count 338 K/mcL (140-400); Red Blood Count 2.46 M/mcL (4.19-5.50); Red Cell Distribution Width 15.8 % (11.5-14.5); Segmented Neutrophils % 83.5 %; White Blood Count 6.6 K/mcL (4.3-11.1)
[2021-12-04] MEDS: Apixaban 5 MG TABLET PO SCH ×2 (08:54→19:57)
[2021-12-04] MEDS: Insulin LISPRO 300 UNITS/3 ML VIAL SUBQ SCH ×3 (08:54→17:07)
[2021-12-04] MEDS: carvediloL 6.25 MG TABLET PO SCH (08:55)
[2021-12-04] MEDS: Furosemide 20 MG TABLET PO SCH (08:55)
[2021-12-04] MEDS: *HR* Metoprolol 5 MG/5 ML VIAL IVP PRN (08:55)
[2021-12-04] MEDS: Gabapentin 300 MG CAPSULE PO SCH ×3 (08:55→19:57)
[2021-12-04] MEDS: Dorzolamide/Timolol OPTH 10 ML BOTTLE BOTH EYES SCH ×2 (08:56→21:21)
[2021-12-04 09:17] LABS: Alanine Aminotransferase 10 Units/L (7-52); Albumin 2.2 g/dL (3.5-5.7); Albumin/Globulin Ratio 0.8 (1.1-2.2); Alkaline Phosphatase 56 Units/L (34-104); Aspartate Amino Transferase 20 Units/L (13-39); BUN/Creatinine Ratio 12 (6-26); Bilirubin,Total 0.4 mg/dL (0.3-1.0); Blood Urea Nitrogen 10 mg/dL (8-23); Calcium 7.6 mg/dL (8.6-10.3); Carbon Dioxide 30 mEq/L (23-29); Chloride 104 mEq/L (98-107); Globulin 2.7 g/dL (2.4-3.5); Glucose 147 mg/dL (70-105); Osmolality,Calculated 290 (280-300); Potassium 3.6 mEq/L (3.5-5.1); Sodium 139 mEq/L (136-145); Total Protein 4.9 g/dL (6.4-8.9); eGFR For African Americans > 60 (> 60); eGFR For Non-African Americans > 60 (> 60)
[2021-12-04] MEDS ORDERED: carvediloL 6.25 MG TABLET PO ONE (13:10)
[2021-12-04] MEDS ORDERED: *HR* Digoxin 0.25 MG TABLET PO ONE (14:25)
[2021-12-04] MEDS: carvediloL 25 MG TABLET PO SCH (17:05)
[2021-12-04] MEDS ORDERED: *HR* Digoxin 0.5 MG/2 ML AMPUL IVP SCH (18:00)
[2021-12-04] MEDS: Insulin DETEMIR 100 UNIT/ML X5UNITS SUBQ SCH (21:21)
[2021-12-04] MEDS: Latanoprost 2.5 ML BOTTLE BOTH EYES SCH (21:22)
[2021-12-05 04:01] LABS: Basophils % 0.4 %; Eosinophils # 0.1 K/mcL (0.0-0.6); Eosinophils % 0.8 %; Hematocrit 24.8 % (37.5-50.1); Hemoglobin 7.7 g/dL (12.9-16.9); Lymphocytes # 0.4 K/mcL (0.6-4.6); Lymphocytes % 5.8 %; Mean Corpuscular Volume 106.4 fL (83.0-100.0); Mean Platelet Volume 10.2 fL (9.4-12.4); Monocytes # 0.8 K/mcL (0.0-1.3); Monocytes % 10.9 %; Nucleated Red Blood Cells 0.3 /100 WBC (0); Platelet Count 356 K/mcL (140-400); Red Blood Count 2.33 M/mcL (4.19-5.50); Red Cell Distribution Width 15.3 % (11.5-14.5); Segmented Neutrophils % 80.1 %; White Blood Count 7.4 K/mcL (4.3-11.1)
[2021-12-05 04:03] LABS: BUN/Creatinine Ratio 13 (6-26); Blood Urea Nitrogen 11 mg/dL (8-23); Calcium 7.4 mg/dL (8.6-10.3); Carbon Dioxide 32 mEq/L (23-29); Chloride 105 mEq/L (98-107); Glucose 127 mg/dL (70-105); Osmolality,Calculated 295 (280-300); Potassium 3.8 mEq/L (3.5-5.1); Sodium 142 mEq/L (136-145); eGFR For African Americans > 60 (> 60); eGFR For Non-African Americans > 60 (> 60)
[2021-12-05] MEDS: *HR* OxyCODONE Immed Rel 5 MG TABLET PO PRN ×3 (05:26→20:38)
[2021-12-05] MEDS: Piperacillin/Tazobactam 3.375 GM in 0.9 % Sodium Chloride Mini Bag 100 ML IVPB SCH ×3 (05:27→22:23)
[2021-12-05] MEDS: Insulin LISPRO 300 UNITS/3 ML VIAL SUBQ SCH ×3 (08:58→18:01)
[2021-12-05] MEDS: carvediloL 25 MG TABLET PO SCH ×2 (08:59→18:01)
[2021-12-05] MEDS: Gabapentin 300 MG CAPSULE PO SCH ×3 (09:00→20:38)
[2021-12-05] MEDS: *HR* Digoxin 0.125 MG TABLET PO SCH ×2 (09:00→09:20)
[2021-12-05] MEDS: Dorzolamide/Timolol OPTH 10 ML BOTTLE BOTH EYES SCH ×2 (09:01→20:38)
[2021-12-05] MEDS: Furosemide 20 MG TABLET PO SCH (09:01)
[2021-12-05] MEDS: Apixaban 5 MG TABLET PO SCH ×2 (09:02→20:38)
[2021-12-05] MEDS: Insulin DETEMIR 100 UNIT/ML X5UNITS SUBQ SCH (20:38)
[2021-12-05] MEDS: Latanoprost 2.5 ML BOTTLE BOTH EYES SCH (20:39)
[2021-12-06 06:07] LABS: Basophils % 0.5 %; Eosinophils % 0.5 %; Hematocrit 28.1 % (37.5-50.1); Hemoglobin 8.8 g/dL (12.9-16.9); Immature Granulocytes % 2.5 % (0-4); Lymphocytes # 0.2 K/mcL (0.6-4.6); Lymphocytes % 2.7 %; Mean Corpuscular HGB Conc 31.3 g/dL (31.6-35.5); Mean Corpuscular Hemoglobin 33.3 pg (28.0-33.3); Mean Corpuscular Volume 106.4 fL (83.0-100.0); Mean Platelet Volume 10.2 fL (9.4-12.4); Monocytes # 0.8 K/mcL (0.0-1.3); Monocytes % 10.3 %; Neutrophils # 6.7 K/mcL (1.6-8.9); Nucleated Red Blood Cells 0.2 /100 WBC (0); Platelet Count 421 K/mcL (140-400); Red Blood Count 2.64 M/mcL (4.19-5.50); Red Cell Distribution Width 15.6 % (11.5-14.5); Segmented Neutrophils % 83.5 %; White Blood Count 8.1 K/mcL (4.3-11.1)
[2021-12-06 06:28] LABS: BUN/Creatinine Ratio 15 (6-26); Blood Urea Nitrogen 12 mg/dL (8-23); Calcium 7.9 mg/dL (8.6-10.3); Carbon Dioxide 35 mEq/L (23-29); Chloride 103 mEq/L (98-107); Glucose 11 mg/dL (70-105); Magnesium 1.8 mg/dL (1.6-2.6); Osmolality,Calculated 289 (280-300); Potassium 3.3 mEq/L (3.5-5.1); Sodium 142 mEq/L (136-145); eGFR For African Americans > 60 (> 60); eGFR For Non-African Americans > 60 (> 60)
[2021-12-06] MEDS: Piperacillin/Tazobactam 3.375 GM in 0.9 % Sodium Chloride Mini Bag 100 ML IVPB SCH ×4 (06:28→21:49)
[2021-12-06] MEDS: *HR* Dextrose 50 % in Water (Syg) 50 ML SYRINGE IVP PRN (06:30)
[2021-12-06] MEDS: *HR* Digoxin 0.125 MG TABLET PO SCH ×2 (07:04→12:05)
[2021-12-06] MEDS: Insulin LISPRO 300 UNITS/3 ML VIAL SUBQ SCH ×3 (07:15→16:11)
[2021-12-06] MEDS: carvediloL 25 MG TABLET PO SCH ×2 (07:39→16:10)
[2021-12-06] MEDS: Apixaban 5 MG TABLET PO SCH ×2 (07:39→21:50)
[2021-12-06] MEDS: Furosemide 20 MG TABLET PO SCH (07:39)
[2021-12-06] MEDS: Gabapentin 300 MG CAPSULE PO SCH ×3 (07:39→21:50)
[2021-12-06] MEDS: Dorzolamide/Timolol OPTH 10 ML BOTTLE BOTH EYES SCH ×2 (07:45→21:50)
[2021-12-06] MEDS: *HR* OxyCODONE Immed Rel 5 MG TABLET PO PRN ×3 (07:59→21:50)
[2021-12-06] MEDS: Spironolactone 25 MG TABLET PO SCH (12:05)
[2021-12-06] MEDS: Acetaminophen 325 MG TABLET PO PRN (16:11)
[2021-12-06] MEDS ORDERED: 0.9 % Sodium Chloride 250 ML IVC ONE (19:48)
[2021-12-06] MEDS: Latanoprost 2.5 ML BOTTLE BOTH EYES SCH (21:51)
[2021-12-07] MEDS: Acetaminophen 325 MG TABLET PO PRN ×2 (01:57→20:16)
[2021-12-07] MEDS: *HR* OxyCODONE Immed Rel 5 MG TABLET PO PRN ×3 (04:17→20:15)
[2021-12-07 05:10] LABS: BUN/Creatinine Ratio 11 (6-26); Blood Urea Nitrogen 10 mg/dL (8-23); Calcium 7.5 mg/dL (8.6-10.3); Carbon Dioxide 32 mEq/L (23-29); Chloride 102 mEq/L (98-107); Glucose 156 mg/dL (70-105); Osmolality,Calculated 288 (280-300); Potassium 3.9 mEq/L (3.5-5.1); Sodium 138 mEq/L (136-145); eGFR For African Americans > 60 (> 60); eGFR For Non-African Americans > 60 (> 60)
[2021-12-07 07:00] LABS: Basophils % 0.4 %; Eosinophils # 0.1 K/mcL (0.0-0.6); Eosinophils % 0.8 %; Hematocrit 24.6 % (37.5-50.1); Hemoglobin 7.8 g/dL (12.9-16.9); Immature Granulocytes % 1.9 % (0-4); Lymphocytes # 0.3 K/mcL (0.6-4.6); Lymphocytes % 3.6 %; Mean Corpuscular HGB Conc 31.7 g/dL (31.6-35.5); Mean Corpuscular Hemoglobin 34.1 pg (28.0-33.3); Mean Corpuscular Volume 107.4 fL (83.0-100.0); Mean Platelet Volume 10.2 fL (9.4-12.4); Monocytes # 0.8 K/mcL (0.0-1.3); Platelet Count 396 K/mcL (140-400); Red Blood Count 2.29 M/mcL (4.19-5.50); Red Cell Distribution Width 15.7 % (11.5-14.5); Segmented Neutrophils % 82.3 %; White Blood Count 7.3 K/mcL (4.3-11.1)
[2021-12-07] MEDS: Insulin LISPRO 300 UNITS/3 ML VIAL SUBQ SCH ×3 (07:33→16:39)
[2021-12-07] MEDS: Gabapentin 300 MG CAPSULE PO SCH ×3 (07:44→20:15)
[2021-12-07] MEDS: carvediloL 25 MG TABLET PO SCH ×2 (07:44→17:36)
[2021-12-07] MEDS: Spironolactone 25 MG TABLET PO SCH (07:45)
[2021-12-07] MEDS: Dorzolamide/Timolol OPTH 10 ML BOTTLE BOTH EYES SCH ×2 (07:45→20:16)
[2021-12-07] MEDS: DilTIAZem CD (24hr) 120 MG CAP.ER.24H PO SCH (07:45)
[2021-12-07] MEDS: *HR* Digoxin 0.125 MG TABLET PO SCH (07:45)
[2021-12-07] MEDS ORDERED: *HR* HYDROcodone/Acet 5/325 mg TABLET PO ONE (09:35)
[2021-12-07] MEDS: Latanoprost 2.5 ML BOTTLE BOTH EYES SCH (20:16)
[2021-12-08] MEDS ORDERED: *HR* OxyCODONE Immed Rel 5 MG TABLET PO ONE (01:25)
[2021-12-08 04:44] LABS: Basophils % 0.4 %; Eosinophils % 0.5 %; Hematocrit 24.2 % (37.5-50.1); Hemoglobin 7.5 g/dL (12.9-16.9); Immature Granulocytes % 1.4 % (0-4); Lymphocytes # 0.3 K/mcL (0.6-4.6); Mean Corpuscular Hemoglobin 33.2 pg (28.0-33.3); Mean Corpuscular Volume 107.1 fL (83.0-100.0); Mean Platelet Volume 10.3 fL (9.4-12.4); Monocytes # 0.8 K/mcL (0.0-1.3); Monocytes % 10.1 %; Neutrophils # 6.7 K/mcL (1.6-8.9); Platelet Count 411 K/mcL (140-400); Red Blood Count 2.26 M/mcL (4.19-5.50); Red Cell Distribution Width 15.4 % (11.5-14.5); Segmented Neutrophils % 83.6 %
[2021-12-08 05:02] LABS: BUN/Creatinine Ratio 13 (6-26); Blood Urea Nitrogen 10 mg/dL (8-23); Calcium 7.6 mg/dL (8.6-10.3); Carbon Dioxide 34 mEq/L (23-29); Chloride 100 mEq/L (98-107); Glucose 250 mg/dL (70-105); Osmolality,Calculated 289 (280-300); Potassium 3.9 mEq/L (3.5-5.1); Sodium 136 mEq/L (136-145); eGFR For African Americans > 60 (> 60); eGFR For Non-African Americans > 60 (> 60)
[2021-12-08] MEDS: Spironolactone 25 MG TABLET PO SCH (08:32)
[2021-12-08] MEDS: *HR* Digoxin 0.125 MG TABLET PO SCH (08:32)
[2021-12-08] MEDS: Furosemide 20 MG TABLET PO SCH (08:32)
[2021-12-08] MEDS: Gabapentin 300 MG CAPSULE PO SCH ×3 (08:32→20:29)
[2021-12-08] MEDS: DilTIAZem CD (24hr) 120 MG CAP.ER.24H PO SCH (08:32)
[2021-12-08] MEDS: *HR* OxyCODONE Immed Rel 5 MG TABLET PO PRN ×3 (08:33→20:29)
[2021-12-08] MEDS: carvediloL 25 MG TABLET PO SCH ×2 (08:33→17:07)
[2021-12-08] MEDS: Dorzolamide/Timolol OPTH 10 ML BOTTLE BOTH EYES SCH ×2 (08:33→20:30)
[2021-12-08] MEDS: Insulin LISPRO 300 UNITS/3 ML VIAL SUBQ SCH ×3 (08:33→17:08)
[2021-12-08] MEDS: Latanoprost 2.5 ML BOTTLE BOTH EYES SCH (20:30)
[2021-12-09] MEDS ORDERED: *HR* OxyCODONE Immed Rel 5 MG TABLET PO ONE (01:09)
[2021-12-09] MEDS: *HR* OxyCODONE Immed Rel 5 MG TABLET PO PRN ×3 (04:21→22:23)
[2021-12-09] MEDS ORDERED: *HR* Heparin 10,000 UNIT/10 ML VIAL ONE (07:13)
[2021-12-09] MEDS ORDERED: 0.9 % Sodium Chloride 1,000 ML ONE ×2 (07:14→07:15)
[2021-12-09] MEDS ORDERED: Heparin 1,000 UNITS/500 mL 500 ML ONE ×2 (07:14→08:10)
[2021-12-09] MEDS ORDERED: *HR* FentaNYL (PF) 100 MCG/2 ML VIAL ONE (07:36)
[2021-12-09] MEDS ORDERED: *HR* Midazolam HCl 2 MG/2 ML VIAL ONE (07:37)
[2021-12-09] MEDS: *HR* HYDROcodone/Acet 5/325 mg TABLET PO PRN ×2 (10:19→15:51)
[2021-12-09 10:37] LABS: Basophils % 0.3 %; Eosinophils # 0.1 K/mcL (0.0-0.6); Eosinophils % 0.5 %; Hematocrit 25.8 % (37.5-50.1); Hemoglobin 7.9 g/dL (12.9-16.9); Immature Granulocytes % 0.9 % (0-4); Lymphocytes # 0.4 K/mcL (0.6-4.6); Lymphocytes % 3.6 %; Mean Corpuscular HGB Conc 30.6 g/dL (31.6-35.5); Mean Corpuscular Hemoglobin 33.2 pg (28.0-33.3); Mean Corpuscular Volume 108.4 fL (83.0-100.0); Mean Platelet Volume 10.2 fL (9.4-12.4); Monocytes # 1.1 K/mcL (0.0-1.3); Monocytes % 10.7 %; Neutrophils # 8.5 K/mcL (1.6-8.9); Platelet Count 417 K/mcL (140-400); Red Blood Count 2.38 M/mcL (4.19-5.50); Red Cell Distribution Width 15.1 % (11.5-14.5); White Blood Count 10.1 K/mcL (4.3-11.1)
[2021-12-09 10:52] LABS: BUN/Creatinine Ratio 13 (6-26); Blood Urea Nitrogen 10 mg/dL (8-23); Calcium 7.9 mg/dL (8.6-10.3); Carbon Dioxide 34 mEq/L (23-29); Chloride 100 mEq/L (98-107); Glucose 126 mg/dL (70-105); Osmolality,Calculated 287 (280-300); Potassium 4.1 mEq/L (3.5-5.1); Sodium 138 mEq/L (136-145); eGFR For African Americans > 60 (> 60); eGFR For Non-African Americans > 60 (> 60)
[2021-12-09] MEDS: *HR* Digoxin 0.125 MG TABLET PO SCH (11:55)
[2021-12-09] MEDS: carvediloL 25 MG TABLET PO SCH ×2 (11:55→15:52)
[2021-12-09] MEDS: Spironolactone 25 MG TABLET PO SCH (11:55)
[2021-12-09] MEDS: Gabapentin 300 MG CAPSULE PO SCH ×3 (11:55→21:24)
[2021-12-09] MEDS: Furosemide 20 MG TABLET PO SCH (11:55)
[2021-12-09] MEDS: DilTIAZem CD (24hr) 120 MG CAP.ER.24H PO SCH (11:55)
[2021-12-09] MEDS: Dorzolamide/Timolol OPTH 10 ML BOTTLE BOTH EYES SCH ×2 (11:56→21:24)
[2021-12-09] MEDS: Insulin LISPRO 300 UNITS/3 ML VIAL SUBQ SCH ×3 (11:57→18:03)
[2021-12-09] MEDS: Latanoprost 2.5 ML BOTTLE BOTH EYES SCH (21:24)
[2021-12-10 01:44] LABS: Basophils % 0.5 %; Eosinophils % 0.5 %; Hematocrit 24.6 % (37.5-50.1); Hemoglobin 7.3 g/dL (12.9-16.9); Immature Granulocytes % 0.9 % (0-4); Lymphocytes # 0.4 K/mcL (0.6-4.6); Lymphocytes % 5.1 %; Mean Corpuscular HGB Conc 29.7 g/dL (31.6-35.5); Mean Corpuscular Volume 107.9 fL (83.0-100.0); Mean Platelet Volume 9.9 fL (9.4-12.4); Monocytes # 0.8 K/mcL (0.0-1.3); Monocytes % 9.6 %; Neutrophils # 6.7 K/mcL (1.6-8.9); Platelet Count 337 K/mcL (140-400); Red Blood Count 2.28 M/mcL (4.19-5.50); Red Cell Distribution Width 14.9 % (11.5-14.5); Segmented Neutrophils % 83.4 %
[2021-12-10] MEDS: *HR* OxyCODONE Immed Rel 5 MG TABLET PO PRN ×3 (07:48→17:07)
[2021-12-10] MEDS: Gabapentin 300 MG CAPSULE PO SCH ×3 (07:48→21:14)
[2021-12-10] MEDS: Apixaban 5 MG TABLET PO SCH (07:48)
[2021-12-10] MEDS: carvediloL 25 MG TABLET PO SCH ×2 (07:49→16:03)
[2021-12-10] MEDS: DilTIAZem CD (24hr) 120 MG CAP.ER.24H PO SCH (07:49)
[2021-12-10] MEDS: Spironolactone 25 MG TABLET PO SCH (07:49)
[2021-12-10] MEDS: Furosemide 20 MG TABLET PO SCH (07:49)
[2021-12-10] MEDS: *HR* Digoxin 0.125 MG TABLET PO SCH (07:49)
[2021-12-10] MEDS: Insulin LISPRO 300 UNITS/3 ML VIAL SUBQ SCH ×3 (07:50→17:07)
[2021-12-10] MEDS: Dorzolamide/Timolol OPTH 10 ML BOTTLE BOTH EYES SCH ×2 (07:55→21:15)
[2021-12-10] MEDS: *HR* HYDROcodone/Acet 5/325 mg TABLET PO PRN (12:11)
[2021-12-10] MEDS ORDERED: Vancomycin 1,250 MG/262.5 ML IV.SOLN IVPB ONE (13:00)
[2021-12-10] MEDS: Piperacillin/Tazobactam 3.375 GM in 0.9 % Sodium Chloride Mini Bag 100 ML IVPB SCH (16:03)
[2021-12-10] MEDS: Latanoprost 2.5 ML BOTTLE BOTH EYES SCH (21:14)
[2021-12-11] MEDS: Piperacillin/Tazobactam 3.375 GM in 0.9 % Sodium Chloride Mini Bag 100 ML IVPB SCH ×4 (00:16→23:11)
[2021-12-11] MEDS: *HR* HYDROcodone/Acet 5/325 mg TABLET PO PRN ×3 (04:02→21:29)
[2021-12-11 05:12] LABS: Basophils % 0.4 %; Eosinophils # 0.1 K/mcL (0.0-0.6); Eosinophils % 0.9 %; Hematocrit 24.9 % (37.5-50.1); Hemoglobin 7.7 g/dL (12.9-16.9); Immature Granulocytes % 0.9 % (0-4); Lymphocytes # 0.2 K/mcL (0.6-4.6); Mean Corpuscular HGB Conc 30.9 g/dL (31.6-35.5); Mean Corpuscular Volume 106.9 fL (83.0-100.0); Mean Platelet Volume 9.8 fL (9.4-12.4); Monocytes # 0.8 K/mcL (0.0-1.3); Monocytes % 10.3 %; Neutrophils # 6.8 K/mcL (1.6-8.9); Platelet Count 331 K/mcL (140-400); Red Blood Count 2.33 M/mcL (4.19-5.50); Red Cell Distribution Width 14.7 % (11.5-14.5); Segmented Neutrophils % 84.5 %; White Blood Count 8.1 K/mcL (4.3-11.1)
[2021-12-11 05:34] LABS: BUN/Creatinine Ratio 16 (6-26); Blood Urea Nitrogen 15 mg/dL (8-23); Calcium 7.8 mg/dL (8.6-10.3); Carbon Dioxide 33 mEq/L (23-29); Chloride 100 mEq/L (98-107); Glucose 197 mg/dL (70-105); Osmolality,Calculated 286 (280-300); Potassium 4.5 mEq/L (3.5-5.1); Sodium 135 mEq/L (136-145); eGFR For African Americans > 60 (> 60); eGFR For Non-African Americans > 60 (> 60)
[2021-12-11] MEDS: Spironolactone 25 MG TABLET PO SCH (08:39)
[2021-12-11] MEDS: carvediloL 25 MG TABLET PO SCH ×2 (08:39→16:46)
[2021-12-11] MEDS: *HR* Digoxin 0.125 MG TABLET PO SCH (08:39)
[2021-12-11] MEDS: Furosemide 20 MG TABLET PO SCH (08:39)
[2021-12-11] MEDS: Gabapentin 300 MG CAPSULE PO SCH ×3 (08:39→20:02)
[2021-12-11] MEDS: DilTIAZem CD (24hr) 120 MG CAP.ER.24H PO SCH (08:39)
[2021-12-11] MEDS: Dorzolamide/Timolol OPTH 10 ML BOTTLE BOTH EYES SCH ×2 (08:40→20:02)
[2021-12-11] MEDS: Insulin LISPRO 300 UNITS/3 ML VIAL SUBQ SCH ×3 (08:40→16:42)
[2021-12-11] MEDS: *HR* OxyCODONE Immed Rel 5 MG TABLET PO PRN ×2 (10:16→16:46)
[2021-12-11] MEDS: Latanoprost 2.5 ML BOTTLE BOTH EYES SCH (20:02)
[2021-12-12 01:45] LABS: Basophils # 0.1 K/mcL (0.0-0.2); Basophils % 0.7 %; Eosinophils # 0.1 K/mcL (0.0-0.6); Eosinophils % 0.9 %; Hematocrit 23.5 % (37.5-50.1); Hemoglobin 7.4 g/dL (12.9-16.9); Immature Granulocytes % 0.8 % (0-4); Lymphocytes # 0.3 K/mcL (0.6-4.6); Lymphocytes % 4.6 %; Mean Corpuscular HGB Conc 31.5 g/dL (31.6-35.5); Mean Corpuscular Hemoglobin 33.3 pg (28.0-33.3); Mean Corpuscular Volume 105.9 fL (83.0-100.0); Mean Platelet Volume 10.2 fL (9.4-12.4); Monocytes % 13.4 %; Neutrophils # 5.9 K/mcL (1.6-8.9); Platelet Count 347 K/mcL (140-400); Red Blood Count 2.22 M/mcL (4.19-5.50); Red Cell Distribution Width 14.8 % (11.5-14.5); Segmented Neutrophils % 79.6 %; White Blood Count 7.4 K/mcL (4.3-11.1)
[2021-12-12 01:51] LABS: BUN/Creatinine Ratio 13 (6-26); Blood Urea Nitrogen 12 mg/dL (8-23); Calcium 7.7 mg/dL (8.6-10.3); Carbon Dioxide 32 mEq/L (23-29); Chloride 100 mEq/L (98-107); Glucose 124 mg/dL (70-105); Osmolality,Calculated 283 (280-300); Sodium 136 mEq/L (136-145); eGFR For African Americans > 60 (> 60); eGFR For Non-African Americans > 60 (> 60)
[2021-12-12] MEDS: *HR* HYDROcodone/Acet 5/325 mg TABLET PO PRN (06:01)
[2021-12-12] MEDS: Insulin LISPRO 300 UNITS/3 ML VIAL SUBQ SCH ×3 (08:12→21:36)
[2021-12-12] MEDS: Piperacillin/Tazobactam 3.375 GM in 0.9 % Sodium Chloride Mini Bag 100 ML IVPB SCH ×3 (08:25→21:35)
[2021-12-12] MEDS: *HR* Digoxin 0.125 MG TABLET PO SCH (08:26)
[2021-12-12] MEDS: carvediloL 25 MG TABLET PO SCH ×2 (08:26→21:36)
[2021-12-12] MEDS: Spironolactone 25 MG TABLET PO SCH (08:26)
[2021-12-12] MEDS: DilTIAZem CD (24hr) 120 MG CAP.ER.24H PO SCH (08:26)
[2021-12-12] MEDS: *HR* OxyCODONE Immed Rel 5 MG TABLET PO PRN ×2 (08:26→22:32)
[2021-12-12] MEDS: Gabapentin 300 MG CAPSULE PO SCH ×3 (08:27→20:19)
[2021-12-12] MEDS: Dorzolamide/Timolol OPTH 10 ML BOTTLE BOTH EYES SCH ×2 (08:27→20:17)
[2021-12-12] MEDS: Furosemide 20 MG TABLET PO SCH (08:27)
[2021-12-12] MEDS ORDERED: ceFAZolin 1,000 MG, Sodium Chloride IRRigation 1,000 ML IR ONE ×2 (13:00→18:43)
[2021-12-12] MEDS ORDERED: Lidocaine -MPF 2% 5 ML VIAL ONE ×2 (14:37→14:40)
[2021-12-12] MEDS ORDERED: *HR* Rocuronium Bromide 50 MG/5 ML VIAL ONE (14:37)
[2021-12-12] MEDS ORDERED: Ondansetron 4 MG/2 ML VIAL ONE (14:37)
[2021-12-12] MEDS ORDERED: *HR* Succinylcholine 200 MG/10 ML VIAL IVP ONE (14:37)
[2021-12-12] MEDS ORDERED: Ropivacaine/PF 0.5% 30 ML VIAL ONE (14:38)
[2021-12-12] MEDS ORDERED: *HR* FentaNYL (PF) 100 MCG/2 ML VIAL ONE (14:38)
[2021-12-12] MEDS ORDERED: *HR* Propofol 200 MG/20 ML VIAL IVP ONE (14:39)
[2021-12-12] MEDS ORDERED: Nitroglycerin 0.4 MG TAB.SUBL SL PRN ×2 (15:16→18:43)
[2021-12-12] MEDS ORDERED: Albuterol 2.5 MG/3 ML NEBULIZER IH PRN ×2 (15:16→18:43)
[2021-12-12] MEDS ORDERED: Ondansetron 4 MG/2 ML VIAL IVP PRN ×3 (15:16→18:43)
[2021-12-12] MEDS ORDERED: Naloxone 0.4 MG/ML INJ IVP PRN ×3 (15:16→18:43)
[2021-12-12] MEDS ORDERED: *HR* HYDROmorphone (PF) 1 MG/ML SYRINGE IVP PRN ×2 (15:16→18:43)
[2021-12-12] MEDS ORDERED: EPHEDrine 50 MG/ML VIAL ONE (15:57)
[2021-12-12] MEDS: *HR* FentaNYL (PF) 100 MCG/2 ML VIAL IVP PRN ×2 (17:17→17:27)
[2021-12-12] MEDS ORDERED: *HR* Dextrose 50 % in Water (Syg) 50 ML SYRINGE IVP PRN (18:43)
[2021-12-12] MEDS ORDERED: Acetaminophen 325 MG TABLET PO PRN (18:43)
[2021-12-12] MEDS ORDERED: Perflutren Lipid Microsphere 1.3 ML in 0.9 % Sodium Chloride 8.7 ML IVP PRN (18:43)
[2021-12-12] MEDS ORDERED: D5% in Water 1,000 ML IVC PRN (18:43)
[2021-12-12] MEDS ORDERED: *HR* FentaNYL (PF) 100 MCG/2 ML VIAL IVP PRN (18:43)
[2021-12-12] MEDS ORDERED: Dextrose Gel 15 GM/37.5 ML TUBE PO PRN ×2 (18:43)
[2021-12-12] MEDS ORDERED: *HR* Metoprolol 5 MG/5 ML VIAL IVP PRN (18:43)
[2021-12-12] MEDS: Latanoprost 2.5 ML BOTTLE BOTH EYES SCH (20:17)
[2021-12-13] MEDS: Piperacillin/Tazobactam 3.375 GM in 0.9 % Sodium Chloride Mini Bag 100 ML IVPB SCH ×3 (03:03→18:20)
[2021-12-13 04:48] LABS: Hematocrit 26.3 % (37.5-50.1); Hemoglobin 8.3 g/dL (12.9-16.9); Mean Corpuscular HGB Conc 31.6 g/dL (31.6-35.5); Mean Corpuscular Hemoglobin 33.7 pg (28.0-33.3); Mean Corpuscular Volume 106.9 fL (83.0-100.0); Mean Platelet Volume 10.3 fL (9.4-12.4); Platelet Count 420 K/mcL (140-400); Red Blood Count 2.46 M/mcL (4.19-5.50); Red Cell Distribution Width 14.8 % (11.5-14.5); White Blood Count 10.3 K/mcL (4.3-11.1)
[2021-12-13 04:59] LABS: BUN/Creatinine Ratio 17 (6-26); Blood Urea Nitrogen 16 mg/dL (8-23); Calcium 8.1 mg/dL (8.6-10.3); Carbon Dioxide 29 mEq/L (23-29); Chloride 97 mEq/L (98-107); Glucose 236 mg/dL (70-105); Osmolality,Calculated 291 (280-300); Potassium 4.5 mEq/L (3.5-5.1); Sodium 136 mEq/L (136-145); eGFR For African Americans > 60 (> 60); eGFR For Non-African Americans > 60 (> 60)
[2021-12-13 05:50] LABS: Lymphocytes # 0.4 K/mcL (0.6-4.6); Monocytes # 0.4 K/mcL (0.0-1.3); Neutrophils # 9.5 K/mcL (1.6-8.9)
[2021-12-13] MEDS: *HR* Digoxin 0.125 MG TABLET PO SCH (09:09)
[2021-12-13] MEDS: Furosemide 20 MG TABLET PO SCH (09:09)
[2021-12-13] MEDS: Gabapentin 300 MG CAPSULE PO SCH ×3 (09:10→21:33)
[2021-12-13] MEDS: Spironolactone 25 MG TABLET PO SCH (09:10)
[2021-12-13] MEDS: carvediloL 25 MG TABLET PO SCH ×2 (09:11→16:47)
[2021-12-13] MEDS: DilTIAZem CD (24hr) 120 MG CAP.ER.24H PO SCH (09:11)
[2021-12-13] MEDS: Dorzolamide/Timolol OPTH 10 ML BOTTLE BOTH EYES SCH ×2 (09:12→21:33)
[2021-12-13] MEDS: Insulin LISPRO 300 UNITS/3 ML VIAL SUBQ SCH ×3 (09:16→16:47)
[2021-12-13] MEDS: *HR* HYDROcodone/Acet 5/325 mg TABLET PO PRN ×3 (10:04→22:31)
[2021-12-13] MEDS: *HR* OxyCODONE Immed Rel 5 MG TABLET PO PRN (17:33)
[2021-12-13] MEDS: Latanoprost 2.5 ML BOTTLE BOTH EYES SCH (21:34)
[2021-12-14] MEDS: *HR* OxyCODONE Immed Rel 5 MG TABLET PO PRN ×4 (00:38→21:05)
[2021-12-14 03:15] LABS: Basophils % 0.1 %; Hematocrit 22.2 % (37.5-50.1); Hemoglobin 6.8 g/dL (12.9-16.9); Immature Granulocytes % 0.6 % (0-4); Lymphocytes # 0.3 K/mcL (0.6-4.6); Lymphocytes % 3.1 %; Mean Corpuscular HGB Conc 30.6 g/dL (31.6-35.5); Mean Corpuscular Volume 107.8 fL (83.0-100.0); Mean Platelet Volume 10.1 fL (9.4-12.4); Monocytes # 0.9 K/mcL (0.0-1.3); Monocytes % 9.4 %; Neutrophils # 8.2 K/mcL (1.6-8.9); Platelet Count 372 K/mcL (140-400); Red Blood Count 2.06 M/mcL (4.19-5.50); Red Cell Distribution Width 15.2 % (11.5-14.5); Segmented Neutrophils % 86.8 %; White Blood Count 9.4 K/mcL (4.3-11.1)
[2021-12-14 03:19] LABS: BUN/Creatinine Ratio 21 (6-26); Blood Urea Nitrogen 16 mg/dL (8-23); Calcium 7.6 mg/dL (8.6-10.3); Carbon Dioxide 31 mEq/L (23-29); Chloride 100 mEq/L (98-107); Glucose 195 mg/dL (70-105); Magnesium 1.8 mg/dL (1.6-2.6); Osmolality,Calculated 287 (280-300); Phosphorous 2.9 mg/dL (2.7-4.5); Sodium 135 mEq/L (136-145); eGFR For African Americans > 60 (> 60); eGFR For Non-African Americans > 60 (> 60)
[2021-12-14] MEDS: Piperacillin/Tazobactam 3.375 GM in 0.9 % Sodium Chloride Mini Bag 100 ML IVPB SCH ×3 (04:43→18:20)
[2021-12-14] MEDS: *HR* Heparin 5,000 UNIT/ML VIAL SQ SCH ×2 (05:46→17:03)
[2021-12-14] MEDS ORDERED: 0.9 % Sodium Chloride 250 ML IVC SCH (08:00)
[2021-12-14] MEDS: Insulin LISPRO 300 UNITS/3 ML VIAL SUBQ SCH ×3 (08:00→16:15)
[2021-12-14] MEDS: DilTIAZem CD (24hr) 120 MG CAP.ER.24H PO SCH (08:38)
[2021-12-14] MEDS: carvediloL 25 MG TABLET PO SCH ×2 (08:38→17:03)
[2021-12-14] MEDS: *HR* HYDROcodone/Acet 5/325 mg TABLET PO PRN ×3 (08:39→23:56)
[2021-12-14] MEDS: Gabapentin 300 MG CAPSULE PO SCH ×3 (08:39→21:05)
[2021-12-14] MEDS: Furosemide 20 MG TABLET PO SCH (08:39)
[2021-12-14] MEDS: Spironolactone 25 MG TABLET PO SCH (08:39)
[2021-12-14] MEDS: *HR* Digoxin 0.125 MG TABLET PO SCH (08:39)
[2021-12-14] MEDS: Dorzolamide/Timolol OPTH 10 ML BOTTLE BOTH EYES SCH ×2 (08:40→21:05)
[2021-12-14] MEDS: Latanoprost 2.5 ML BOTTLE BOTH EYES SCH (21:06)
[2021-12-15] MEDS: Piperacillin/Tazobactam 3.375 GM in 0.9 % Sodium Chloride Mini Bag 100 ML IVPB SCH (03:26)
[2021-12-15 04:29] LABS: Basophils % 0.6 %; Eosinophils % 0.3 %; Hematocrit 28.3 % (37.5-50.1); Immature Granulocytes % 0.6 % (0-4); Lymphocytes # 0.4 K/mcL (0.6-4.6); Lymphocytes % 4.9 %; Mean Corpuscular HGB Conc 31.4 g/dL (31.6-35.5); Mean Corpuscular Hemoglobin 32.6 pg (28.0-33.3); Mean Corpuscular Volume 103.7 fL (83.0-100.0); Mean Platelet Volume 10.1 fL (9.4-12.4); Monocytes # 0.7 K/mcL (0.0-1.3); Monocytes % 10.4 %; Neutrophils # 5.9 K/mcL (1.6-8.9); Platelet Count 388 K/mcL (140-400); Red Blood Count 2.73 M/mcL (4.19-5.50); Red Cell Distribution Width 17.2 % (11.5-14.5); Segmented Neutrophils % 83.2 %; White Blood Count 7.1 K/mcL (4.3-11.1)
[2021-12-15 04:30] LABS: Hemoglobin 8.9 g/dL (12.9-16.9)
[2021-12-15 04:41] LABS: BUN/Creatinine Ratio 17 (6-26); Blood Urea Nitrogen 12 mg/dL (8-23); Calcium 7.6 mg/dL (8.6-10.3); Carbon Dioxide 34 mEq/L (23-29); Chloride 101 mEq/L (98-107); Glucose 153 mg/dL (70-105); Magnesium 1.8 mg/dL (1.6-2.6); Osmolality,Calculated 289 (280-300); Sodium 138 mEq/L (136-145); eGFR For African Americans > 60 (> 60); eGFR For Non-African Americans > 60 (> 60)
[2021-12-15] MEDS: *HR* OxyCODONE Immed Rel 5 MG TABLET PO PRN ×3 (05:34→20:04)
[2021-12-15] MEDS: Insulin LISPRO 300 UNITS/3 ML VIAL SUBQ SCH ×3 (08:06→15:49)
[2021-12-15] MEDS: *HR* Digoxin 0.125 MG TABLET PO SCH (09:00)
[2021-12-15] MEDS: Furosemide 20 MG TABLET PO SCH (09:00)
[2021-12-15] MEDS: carvediloL 25 MG TABLET PO SCH ×2 (09:00→15:48)
[2021-12-15] MEDS: Gabapentin 300 MG CAPSULE PO SCH ×3 (09:01→20:05)
[2021-12-15] MEDS: Dorzolamide/Timolol OPTH 10 ML BOTTLE BOTH EYES SCH ×2 (09:01→20:05)
[2021-12-15] MEDS: Spironolactone 25 MG TABLET PO SCH (09:01)
[2021-12-15] MEDS: DilTIAZem CD (24hr) 120 MG CAP.ER.24H PO SCH (09:02)
[2021-12-15] MEDS: levoFLOXacin 750 MG TABLET PO SCH (09:02)
[2021-12-15] MEDS: *HR* HYDROcodone/Acet 5/325 mg TABLET PO PRN ×3 (09:42→23:05)
[2021-12-15] MEDS: Latanoprost 2.5 ML BOTTLE BOTH EYES SCH (20:05)
[2021-12-16] MEDS: *HR* OxyCODONE Immed Rel 5 MG TABLET PO PRN ×3 (02:44→15:36)
[2021-12-16 04:51] LABS: Basophils % 0.3 %; Eosinophils % 0.2 %; Hematocrit 30.3 % (37.5-50.1); Hemoglobin 9.3 g/dL (12.9-16.9); Immature Granulocytes % 0.7 % (0-4); Lymphocytes # 0.4 K/mcL (0.6-4.6); Lymphocytes % 4.7 %; Mean Corpuscular HGB Conc 30.7 g/dL (31.6-35.5); Mean Corpuscular Volume 104.1 fL (83.0-100.0); Monocytes # 0.7 K/mcL (0.0-1.3); Neutrophils # 7.5 K/mcL (1.6-8.9); Platelet Count 388 K/mcL (140-400); Red Blood Count 2.91 M/mcL (4.19-5.50); Red Cell Distribution Width 16.2 % (11.5-14.5); Segmented Neutrophils % 86.1 %; White Blood Count 8.7 K/mcL (4.3-11.1)
[2021-12-16 05:12] LABS: BUN/Creatinine Ratio 14 (6-26); Blood Urea Nitrogen 9 mg/dL (8-23); Calcium 7.9 mg/dL (8.6-10.3); Carbon Dioxide 33 mEq/L (23-29); Chloride 99 mEq/L (98-107); Glucose 151 mg/dL (70-105); Magnesium 1.7 mg/dL (1.6-2.6); Osmolality,Calculated 282 (280-300); Sodium 135 mEq/L (136-145); eGFR For African Americans > 60 (> 60); eGFR For Non-African Americans > 60 (> 60)
[2021-12-16] MEDS: Insulin LISPRO 300 UNITS/3 ML VIAL SUBQ SCH ×3 (09:12→16:54)
[2021-12-16] MEDS: *HR* Digoxin 0.125 MG TABLET PO SCH (09:20)
[2021-12-16] MEDS: levoFLOXacin 750 MG TABLET PO SCH (09:20)
[2021-12-16] MEDS: Furosemide 20 MG TABLET PO SCH (09:20)
[2021-12-16] MEDS: Gabapentin 300 MG CAPSULE PO SCH ×3 (09:20→20:10)
[2021-12-16] MEDS: carvediloL 25 MG TABLET PO SCH ×2 (09:22→16:55)
[2021-12-16] MEDS: Spironolactone 25 MG TABLET PO SCH (09:22)
[2021-12-16] MEDS: DilTIAZem CD (24hr) 120 MG CAP.ER.24H PO SCH (09:22)
[2021-12-16] MEDS: Dorzolamide/Timolol OPTH 10 ML BOTTLE BOTH EYES SCH ×2 (09:44→20:11)
[2021-12-16] MEDS: Latanoprost 2.5 ML BOTTLE BOTH EYES SCH (20:11)
[2021-12-17] MEDS: *HR* OxyCODONE Immed Rel 5 MG TABLET PO PRN ×2 (02:41→11:45)
[2021-12-17 05:29] LABS: Basophils % 0.2 %; Eosinophils % 0.2 %; Hematocrit 27.7 % (37.5-50.1); Hemoglobin 8.5 g/dL (12.9-16.9); Immature Granulocytes % 0.7 % (0-4); Lymphocytes # 0.3 K/mcL (0.6-4.6); Lymphocytes % 2.8 %; Mean Corpuscular HGB Conc 30.7 g/dL (31.6-35.5); Mean Corpuscular Hemoglobin 32.1 pg (28.0-33.3); Mean Corpuscular Volume 104.5 fL (83.0-100.0); Monocytes # 0.8 K/mcL (0.0-1.3); Monocytes % 6.4 %; Platelet Count 339 K/mcL (140-400); Red Blood Count 2.65 M/mcL (4.19-5.50); Red Cell Distribution Width 15.7 % (11.5-14.5); Segmented Neutrophils % 89.7 %; White Blood Count 12.3 K/mcL (4.3-11.1)
[2021-12-17 05:40] LABS: BUN/Creatinine Ratio 14 (6-26); Blood Urea Nitrogen 12 mg/dL (8-23); Calcium 7.9 mg/dL (8.6-10.3); Carbon Dioxide 34 mEq/L (23-29); Chloride 98 mEq/L (98-107); Glucose 230 mg/dL (70-105); Magnesium 1.9 mg/dL (1.6-2.6); Osmolality,Calculated 285 (280-300); Potassium 4.1 mEq/L (3.5-5.1); Sodium 134 mEq/L (136-145); eGFR For African Americans > 60 (> 60); eGFR For Non-African Americans > 60 (> 60)
[2021-12-17] MEDS: DilTIAZem CD (24hr) 120 MG CAP.ER.24H PO SCH (08:42)
[2021-12-17] MEDS: Furosemide 20 MG TABLET PO SCH (08:43)
[2021-12-17] MEDS: *HR* Digoxin 0.125 MG TABLET PO SCH (08:43)
[2021-12-17] MEDS: carvediloL 25 MG TABLET PO SCH (08:43)
[2021-12-17] MEDS: Gabapentin 300 MG CAPSULE PO SCH (08:43)
[2021-12-17] MEDS: levoFLOXacin 750 MG TABLET PO SCH (08:43)
[2021-12-17] MEDS: Spironolactone 25 MG TABLET PO SCH (08:44)
[2021-12-17] MEDS: Insulin LISPRO 300 UNITS/3 ML VIAL SUBQ SCH ×2 (08:50→13:38)
[2021-12-17] MEDS: Dorzolamide/Timolol OPTH 10 ML BOTTLE BOTH EYES SCH (08:52)
[2021-12-17 11:31] VITALS: BP 124/68; PULSE 76; TEMP 98; O2SAT 96
[2021-12-17 12:34] LABS: Influenza A PCR Negative (Negative); Influenza B PCR Negative (Negative); Resp. Syncytial Virus PCR Negative (Negative)
[2021-12-17 12:36] LABS: SARS-CoV-2 by PCR (In House) Negative (Negative)
== END 2021-12-17 13:56 | DRG 853 ==
LOC: 2NNU → SUATTDRO 14:04 → 2NENU 12-02 19:48 → 4WAOSI 12-12 15:42
PROVIDERS: ADMIT General Practice; ATTEND Pharmacist

== ENCOUNTER 2021-12-19 18:32 | Inpatient (IN) ==
[2021-12-19] MEDS ORDERED: Naloxone 0.4 MG/ML INJ IVP PRN (21:10)
[2021-12-19] MEDS ORDERED: Acetaminophen 325 MG TABLET PO PRN (21:10)
[2021-12-19] MEDS ORDERED: Melatonin 3 MG TABLET PO PRN (21:10)
[2021-12-19] MEDS ORDERED: Ondansetron 4 MG/2 ML VIAL IVP PRN (21:10)
[2021-12-19] MEDS ORDERED: Isovue-370 500 ML BOTTLE IVP ONE (21:17)
[2021-12-19] MEDS ORDERED: D5% in Water 1,000 ML IVC PRN (21:18)
[2021-12-19] MEDS ORDERED: *HR* Heparin 5,000 UNIT/ML VIAL IVP PRN (21:18)
[2021-12-19] MEDS ORDERED: Dextrose 4 GM Chewable Tablets PO PRN ×2 (21:18)
[2021-12-19] MEDS ORDERED: 0.9 % Sodium Chloride 1,000 ML IVC ONE (21:20)
[2021-12-19] MEDS ORDERED: Artificial Tears SOLN 15 ML BOTTLE BOTH EYES PRN (21:27)
[2021-12-19] MEDS ORDERED: Saliva Stimulant 44.3ml BOTTLE PO PRN (21:27)
[2021-12-19] MEDS ORDERED: Saline Nasal Spray 44 ML BOTTLE NS PRN (21:27)
[2021-12-19] MEDS ORDERED: Heparin 25,000UNIT/250ML 1/2NS 25,000 UNIT/250 ML IV.SOLN IVC SCH (21:30)
[2021-12-19] MEDS ORDERED: 0.9 % Sodium Chloride 1,000 ML IVC SCH (21:30)
[2021-12-19] MEDS: Heparin 25,000UNIT/250ML 1/2NS 25,000 UNIT/250 ML IV.SOLN IVC SCH (22:26)
[2021-12-19] MEDS: Piperacillin/Tazobactam 3.375 GM in 0.9 % Sodium Chloride Mini Bag 100 ML IVPB SCH (22:26)
[2021-12-19] MEDS ORDERED: QUEtiapine Fumarate 25 MG TABLET PO SCH (23:15)
[2021-12-19] MEDS: Ipratropium/Albuterol Neb 3 ML IH SCH (23:17)
[2021-12-19 23:21] LABS: VBG HCO3 29 mEq/L (21-27); VBG PCO2 51 mmHg (41-51); VBG PH 7.37 pH Units (7.32-7.42); VBG PO2 78 mmHg (25-50)
[2021-12-19 23:35] LABS: Acetaminophen < 10 mcg/mL (10-20); C-Reactive Protein 249 mg/L (Less than 10); Salicylate < 2.5 mg/dL (15.0-30.0)
[2021-12-19] MEDS: *HR* Dextrose 50 % in Water (Syg) 50 ML SYRINGE IVP PRN (23:45)
[2021-12-20] MEDS: Calcium Gluconate 1gm/50mL 1 GM/50 ML BAG IVPB SCH ×2 (00:03→00:47)
[2021-12-20] MEDS: D10% in Water 500 ML IVC SCH ×3 (00:09→21:13)
[2021-12-20 01:02] LABS: Bacteria,Urine Few per hpf (None-Few); Bilirubin,Urine Negative (Negative); Blood,Urine Negative (Negative); Clarity,Urine Clear (Clear); Color,Urine Yellow (Yellow); Glucose,Urine (UA) 70 mg/dL (Normal); Hyaline Casts,Urine Few per lpf (None Seen); Ketones,Urine Negative (Negative); Leukocyte Esterase,Urine Trace (Negative); Mucus,Urine Few per lpf (None-Few); Nitrite,Urine Negative (Negative); Protein,Urine 50 mg/dL (Neg-Trace); RBC,Urine 0-3 per hpf (0-3); Specific Gravity,Urine 1.022 (1.010-1.025); Squamous Epithelial Cell,Urine Few per hpf (None-Few)
[2021-12-20] MEDS: Ipratropium/Albuterol Neb 3 ML IH SCH ×4 (04:00→20:18)
[2021-12-20] MEDS: *HR* Dextrose 50 % in Water (Syg) 50 ML SYRINGE IVP PRN ×3 (05:03→11:04)
[2021-12-20 06:27] LABS: Basophils % 0.1 %; Eosinophils % 0.1 %; Hematocrit 23.4 % (37.5-50.1); Lymphocytes # 0.2 K/mcL (0.6-4.6); Lymphocytes % 1.5 %; Mean Corpuscular HGB Conc 29.9 g/dL (31.6-35.5); Mean Corpuscular Hemoglobin 32.1 pg (28.0-33.3); Mean Corpuscular Volume 107.3 fL (83.0-100.0); Mean Platelet Volume 10.4 fL (9.4-12.4); Monocytes # 1.1 K/mcL (0.0-1.3); Monocytes % 8.3 %; Neutrophils # 11.5 K/mcL (1.6-8.9); Platelet Count 251 K/mcL (140-400); Red Blood Count 2.18 M/mcL (4.19-5.50); Red Cell Distribution Width 15.4 % (11.5-14.5); White Blood Count 12.9 K/mcL (4.3-11.1)
[2021-12-20 06:32] LABS: % Iron Saturation 20 % (20-55); BUN/Creatinine Ratio 20 (6-26); Blood Urea Nitrogen 21 mg/dL (8-23); Calcium 7.5 mg/dL (8.6-10.3); Carbon Dioxide 27 mEq/L (23-29); Chloride 101 mEq/L (98-107); Chol/HDL Ratio 2.7 (0-4.9); Cholesterol 68 mg/dL (< 200); Glucose 100 mg/dL (70-105); HDL Cholesterol 25 mg/dL (40-59); INR 1.6; Iron 28 mcg/dL (65-175); LDL Cholesterol,Calculated 28 mg/dL (< 100); Osmolality,Calculated 281 (280-300); Phosphorous 3.2 mg/dL (2.7-4.5); Potassium 3.4 mEq/L (3.5-5.1); Prothrombin Time 17.7 Seconds (9.4-12.1); Sodium 134 mEq/L (136-145); Transferrin 100 mg/dL (203-362); Triglycerides 76 mg/dL (< 150); eGFR For African Americans > 60 (> 60); eGFR For Non-African Americans > 60 (> 60)
[2021-12-20] MEDS: *HR* Heparin 5,000 UNIT/ML VIAL IVP PRN (06:42)
[2021-12-20 06:45] LABS: Ferritin 1012 ng/mL (20-250)
[2021-12-20 06:52] LABS: Hepatitis B Surface Antigen Nonreactive (Nonreactive)
[2021-12-20 07:20] LABS: Hepatitis C Virus Antibody Nonreactive (Nonreactive)
[2021-12-20 07:22] LABS: Hepatitis A Antibody IgM Nonreactive (Nonreactive)
[2021-12-20 07:47] LABS: Estimated Average Glucose 151 mg/dl; Hemoglobin A1C 6.9 %
[2021-12-20] MEDS: Multivit/Ca/Min/Fe/FA 1 TAB TABLET PO SCH (08:29)
[2021-12-20] MEDS: Chlorhexidine Rinse 15 ML MOUTHWASH MM SCH ×2 (08:29→21:12)
[2021-12-20] MEDS: Cyanocobalamin (B-12) 1,000 MCG TABLET PO SCH (08:29)
[2021-12-20] MEDS: Cholecalciferol (D-3) 1,000 UNIT (25MCG) TABLET PO SCH (08:30)
[2021-12-20] MEDS: Lactobacillus 1 EACH CAP.SPRINK PO SCH ×2 (08:30→21:12)
[2021-12-20] MEDS: Gabapentin 400 MG CAPSULE PO SCH ×3 (08:30→21:12)
[2021-12-20] MEDS: Piperacillin/Tazobactam 3.375 GM in 0.9 % Sodium Chloride Mini Bag 100 ML IVPB SCH ×3 (08:30→23:08)
[2021-12-20] MEDS ORDERED: Vancomycin 1,250 MG/262.5 ML IV.SOLN IVPB SCH (09:00)
[2021-12-20] MEDS: Heparin 25,000UNIT/250ML 1/2NS 25,000 UNIT/250 ML IV.SOLN IVC SCH (18:34)
[2021-12-20] MEDS: QUEtiapine Fumarate 25 MG TABLET PO SCH (21:12)
[2021-12-21 03:00] LABS: Basophils % 0.2 %; Eosinophils % 0.2 %; Immature Granulocytes % 0.8 % (0-4); Lymphocytes # 0.2 K/mcL (0.6-4.6); Lymphocytes % 1.6 %; Mean Corpuscular HGB Conc 31.8 g/dL (31.6-35.5); Mean Corpuscular Hemoglobin 33.3 pg (28.0-33.3); Mean Corpuscular Volume 104.8 fL (83.0-100.0); Mean Platelet Volume 10.8 fL (9.4-12.4); Monocytes # 0.8 K/mcL (0.0-1.3); Monocytes % 6.1 %; Neutrophils # 11.5 K/mcL (1.6-8.9); Platelet Count 236 K/mcL (140-400); Red Cell Distribution Width 15.7 % (11.5-14.5); Segmented Neutrophils % 91.1 %; White Blood Count 12.7 K/mcL (4.3-11.1)
[2021-12-21] MEDS: *HR* Heparin 5,000 UNIT/ML VIAL IVP PRN (03:18)
[2021-12-21] MEDS: Ipratropium/Albuterol Neb 3 ML IH SCH ×4 (04:23→20:22)
[2021-12-21] MEDS: D10% in Water 500 ML IVC SCH ×2 (05:49→15:18)
[2021-12-21] MEDS: Piperacillin/Tazobactam 3.375 GM in 0.9 % Sodium Chloride Mini Bag 100 ML IVPB SCH ×3 (08:59→23:32)
[2021-12-21] MEDS: Cholecalciferol (D-3) 1,000 UNIT (25MCG) TABLET PO SCH (09:05)
[2021-12-21] MEDS: Chlorhexidine Rinse 15 ML MOUTHWASH MM SCH ×2 (09:06→20:31)
[2021-12-21] MEDS: Lactobacillus 1 EACH CAP.SPRINK PO SCH ×2 (09:06→20:31)
[2021-12-21] MEDS: Cyanocobalamin (B-12) 1,000 MCG TABLET PO SCH (09:06)
[2021-12-21] MEDS: Gabapentin 400 MG CAPSULE PO SCH ×3 (09:06→20:31)
[2021-12-21] MEDS: Multivit/Ca/Min/Fe/FA 1 TAB TABLET PO SCH (09:06)
[2021-12-21] MEDS ORDERED: 0.9 % Sodium Chloride 250 ML ONE (11:56)
[2021-12-21] MEDS: Heparin 25,000UNIT/250ML 1/2NS 25,000 UNIT/250 ML IV.SOLN IVC SCH (17:33)
[2021-12-21] MEDS: QUEtiapine Fumarate 25 MG TABLET PO SCH (20:31)
[2021-12-22] MEDS: Insulin LISPRO 300 UNITS/3 ML VIAL SUBQ SCH ×6 (00:13→20:41)
[2021-12-22] MEDS: Ipratropium/Albuterol Neb 3 ML IH SCH ×4 (03:48→19:59)
[2021-12-22] MEDS: D10% in Water 500 ML IVC SCH ×3 (04:34→20:40)
[2021-12-22] MEDS: Chlorhexidine Rinse 15 ML MOUTHWASH MM SCH ×2 (08:02→20:39)
[2021-12-22] MEDS: Lactobacillus 1 EACH CAP.SPRINK PO SCH ×2 (08:02→20:40)
[2021-12-22] MEDS: Multivit/Ca/Min/Fe/FA 1 TAB TABLET PO SCH (08:02)
[2021-12-22] MEDS: Cholecalciferol (D-3) 1,000 UNIT (25MCG) TABLET PO SCH (08:02)
[2021-12-22] MEDS: Cyanocobalamin (B-12) 1,000 MCG TABLET PO SCH (08:03)
[2021-12-22] MEDS: Piperacillin/Tazobactam 3.375 GM in 0.9 % Sodium Chloride Mini Bag 100 ML IVPB SCH ×2 (08:03→16:05)
[2021-12-22] MEDS: Gabapentin 400 MG CAPSULE PO SCH ×3 (08:03→20:40)
[2021-12-22 08:54] LABS: Basophils % 0.2 %; Eosinophils # 0.1 K/mcL (0.0-0.6); Eosinophils % 0.4 %; Hematocrit 28.6 % (37.5-50.1); Immature Granulocytes % 0.8 % (0-4); Lymphocytes # 0.3 K/mcL (0.6-4.6); Lymphocytes % 2.5 %; Mean Corpuscular HGB Conc 31.5 g/dL (31.6-35.5); Mean Corpuscular Hemoglobin 31.9 pg (28.0-33.3); Mean Corpuscular Volume 101.4 fL (83.0-100.0); Mean Platelet Volume 10.5 fL (9.4-12.4); Monocytes # 0.8 K/mcL (0.0-1.3); Monocytes % 5.9 %; Neutrophils # 11.7 K/mcL (1.6-8.9); Platelet Count 268 K/mcL (140-400); Red Blood Count 2.82 M/mcL (4.19-5.50); Red Cell Distribution Width 16.8 % (11.5-14.5); Segmented Neutrophils % 90.2 %
[2021-12-22 09:14] LABS: BUN/Creatinine Ratio 15 (6-26); Blood Urea Nitrogen 15 mg/dL (8-23); Calcium 7.2 mg/dL (8.6-10.3); Carbon Dioxide 29 mEq/L (23-29); Chloride 102 mEq/L (98-107); Glucose 173 mg/dL (70-105); Osmolality,Calculated 287 (280-300); Potassium 3.5 mEq/L (3.5-5.1); Sodium 136 mEq/L (136-145); eGFR For African Americans > 60 (> 60); eGFR For Non-African Americans > 60 (> 60)
[2021-12-22] MEDS: Heparin 25,000UNIT/250ML 1/2NS 25,000 UNIT/250 ML IV.SOLN IVC SCH (16:06)
[2021-12-22] MEDS: QUEtiapine Fumarate 25 MG TABLET PO SCH (20:40)
[2021-12-23] MEDS: Piperacillin/Tazobactam 3.375 GM in 0.9 % Sodium Chloride Mini Bag 100 ML IVPB SCH ×2 (00:47→10:14)
[2021-12-23] MEDS: Insulin LISPRO 300 UNITS/3 ML VIAL SUBQ SCH ×4 (01:13→12:38)
[2021-12-23] MEDS: Ipratropium/Albuterol Neb 3 ML IH SCH ×4 (04:07→20:33)
[2021-12-23 06:39] LABS: Basophils % 0.2 %; Eosinophils # 0.1 K/mcL (0.0-0.6); Eosinophils % 0.5 %; Hematocrit 26.9 % (37.5-50.1); Hemoglobin 8.4 g/dL (12.9-16.9); Immature Granulocytes % 0.7 % (0-4); Lymphocytes # 0.3 K/mcL (0.6-4.6); Lymphocytes % 2.3 %; Mean Corpuscular HGB Conc 31.2 g/dL (31.6-35.5); Mean Corpuscular Hemoglobin 31.6 pg (28.0-33.3); Mean Corpuscular Volume 101.1 fL (83.0-100.0); Mean Platelet Volume 10.4 fL (9.4-12.4); Monocytes # 0.8 K/mcL (0.0-1.3); Monocytes % 6.9 %; Neutrophils # 10.9 K/mcL (1.6-8.9); Platelet Count 231 K/mcL (140-400); Red Blood Count 2.66 M/mcL (4.19-5.50); Red Cell Distribution Width 16.1 % (11.5-14.5); Segmented Neutrophils % 89.4 %; White Blood Count 12.2 K/mcL (4.3-11.1)
[2021-12-23 06:41] VITALS: TEMP 100
[2021-12-23 06:58] LABS: BUN/Creatinine Ratio 13 (6-26); Blood Urea Nitrogen 12 mg/dL (8-23); Calcium 7.2 mg/dL (8.6-10.3); Carbon Dioxide 31 mEq/L (23-29); Chloride 103 mEq/L (98-107); Glucose 153 mg/dL (70-105); Osmolality,Calculated 287 (280-300); Potassium 3.4 mEq/L (3.5-5.1); Sodium 137 mEq/L (136-145); eGFR For African Americans > 60 (> 60); eGFR For Non-African Americans > 60 (> 60)
[2021-12-23] MEDS: Cholecalciferol (D-3) 1,000 UNIT (25MCG) TABLET PO SCH (10:06)
[2021-12-23] MEDS: Cyanocobalamin (B-12) 1,000 MCG TABLET PO SCH (10:06)
[2021-12-23] MEDS: Lactobacillus 1 EACH CAP.SPRINK PO SCH (10:06)
[2021-12-23] MEDS: Gabapentin 400 MG CAPSULE PO SCH (10:06)
[2021-12-23] MEDS: Chlorhexidine Rinse 15 ML MOUTHWASH MM SCH (10:06)
[2021-12-23] MEDS: Multivit/Ca/Min/Fe/FA 1 TAB TABLET PO SCH (10:06)
[2021-12-23] MEDS: D10% in Water 500 ML IVC SCH (14:28)
[2021-12-23] MEDS: Heparin 25,000UNIT/250ML 1/2NS 25,000 UNIT/250 ML IV.SOLN IVC SCH (14:29)
[2021-12-23 17:14] VITALS: BP 154/76; PULSE 99; O2SAT 98
[2021-12-24] MEDS ORDERED: CeFAZolin 2,000 MG/120 ML BAG IVPB ONE (12:52)
== END 2021-12-23 20:30 | disposition expired | DRG 871 ==
LOC: 3NENU → SUATTDRO 21:10
PROVIDERS: ADMIT Internal Medicine; ATTEND Internal Medicine